=== PATIENT | female | born 1935 | race Caucasian/White ===

== ENCOUNTER 2018-04-20 12:58 | Inpatient (IN) | payer MEDICARE, BC ==
[2018-04-20] MEDS ORDERED: ATROPINE SULFATE 0.1 MG/ML 10ML SYRINGE IV STA (13:30)
[2018-04-20] MEDS ORDERED: SODIUM CHLORIDE 0.9% 1,000 ML IV STA (13:30)
--- NOTE | 2018-04-20 13:44 | ED ---
General Adult HPI - General Chief complaint: Arrhythmia/Palpitations Stated complaint: palpitations, arrythmia Time Seen by Provider: 04/20/18 13:23 Source: patient, RN notes reviewed, old records reviewed Mode of arrival: ambulatory Limitations: no limitations - History of Present Illness Initial comments: This is an 83-year-old female the ER for evaluation. Patient resents today for evaluation regarding weakness, lethargy. Patient sent in by family doctor for evaluation regarding low heart rate. Patient is found to be bradycardic. Patient is relatively poor strain history is obtained from patient's chart and prior ER visits as well as ER record, EMS - Related Data Home Medications Medication Instructions Recorded Confirmed Atenolol [Tenormin] 50 mg PO DAILY 04/20/18 04/20/18 Enalapril [Vasotec] 2.5 mg PO DAILY 04/20/18 04/20/18 Triamterene/Hydrochlorothiazid 1 tab PO DAILY 04/20/18 04/20/18 [Triamterene-Hctz 37.5-25 mg Tb] glipiZIDE [Glucotrol] 10 mg PO DAILY 04/20/18 04/20/18 metFORMIN HCL [Glucophage] 500 mg PO DAILY 04/20/18 04/20/18 Allergies Allergy/AdvReac Type Severity Reaction Status Date / Time No Known Allergies Allergy Verified 04/20/18 13:52 Review of Systems ROS Statement: Those systems with pertinent positive or pertinent negative responses have been documented in the HPI. ROS Other: All systems not noted in ROS Statement are negative. Past Medical History Past Medical History: Diabetes Mellitus, Hypertension History of Any Multi-Drug Resistant Organisms: None Reported Past Surgical History: Appendectomy, Joint Replacement Additional Past Surgical History / Comment(s): lung surg hip replac Past Psychological History: No Psychological Hx Reported Smoking Status: Former smoker Past Alcohol Use History: None Reported Past Drug Use History: None Reported General Exam Limitations: no limitations General appearance: alert, in no apparent distress Head exam: Present: atraumatic, normocephalic, normal inspection Eye exam: Present: normal appearance, PERRL, EOMI. Absent: scleral icterus, conjunctival injection, periorbital swelling ENT exam: Present: normal exam, mucous membranes moist Neck exam: Present: normal inspection. Absent: tenderness, meningismus, lymphadenopathy Respiratory exam: Present: normal lung sounds bilaterally. Absent: respiratory distress, wheezes, rales, rhonchi, stridor Cardiovascular Exam: Present: normal rhythm, bradycardia, normal heart sounds. Absent: systolic murmur, diastolic murmur, rubs, gallop, clicks GI/Abdominal exam: Present: soft, normal bowel sounds. Absent: distended, tenderness, guarding, rebound, rigid Extremities exam: Present: normal inspection, full ROM, normal capillary refill. Absent: tenderness, pedal edema, joint swelling, calf tenderness Back exam: Present: normal inspection Neurological exam: Present: alert, oriented X3, CN II-XII intact Psychiatric exam: Present: normal affect, normal mood Skin exam: Present: warm, dry, intact, normal color. Absent: rash Course Vital Signs 04/20/18 04/20/18 04/20/18 13:02 14:15 14:16 Temperature 97.9 F Pulse Rate 41 L 50 L Pulse Rate [ 38 L Card[place] Doubler ] Respiratory 16 16 Rate Blood Pressure 131/52 145/65 O2 Sat by Pulse 99 97 Oximetry - Reevaluation(s) Reevaluation #1: 04/20/18 16:25 Patient's medical records thoroughly reviewed Reevaluation #2: 04/20/18 16:25 Abdomen or change in both heart rate or symptoms EKG Findings - EKG Comments: EKG Findings:: EKG shows A. fib rate of 40, QRS 124, QTc 4:15 Medical Decision Making - Medical Decision Making 83 female the ER for evaluation of weakness, patient has mild UTI, bradycardia. Patient be admitted for evaluation by cardiology regarding bradycardia and weakness - Lab Data Result diagrams: 04/20/18 13:35 04/20/18 13:35 Lab Results 04/20/18 04/20/18 04/20/18 Range/Units 13:35 13:35 13:35 WBC 8.2 (3.8-10.6) k/uL RBC 4.33 (3.80-5.40) m/uL Hgb 13.3 (11.4-16.0) gm/dL Hct 40.5 (34.0-46.0) % MCV 93.6 (80.0-100.0) fL MCH 30.8 (25.0-35.0) pg MCHC 32.9 (31.0-37.0) g/dL RDW 12.2 (11.5-15.5) % Plt Count 267 (150-450) k/uL Neutrophils % 74 % Lymphocytes % 16 % Monocytes % 5 % Eosinophils % 2 % Basophils % 1 % Neutrophils # 6.1 (1.3-7.7) k/uL Lymphocytes # 1.3 (1.0-4.8) k/uL Monocytes # 0.4 (0-1.0) k/uL Eosinophils # 0.2 (0-0.7) k/uL Basophils # 0.1 (0-0.2) k/uL PT (9.0-12.0) sec INR (<1.2) APTT (22.0-30.0) sec Sodium 141 (137-145) mmol/L Potassium 4.8 (3.5-5.1) mmol/L Chloride 106 (98-107) mmol/L Carbon Dioxide 25 (22-30) mmol/L Anion Gap 10 mmol/L BUN 43 H (7-17) mg/dL Creatinine 1.62 H (0.52-1.04) mg/dL Est GFR (CKD-EPI)AfAm 33 (>60 ml/min/1.73 sqM) Est GFR (CKD-EPI)NonAf 29 (>60 ml/min/1.73 sqM) Glucose 75 (74-99) mg/dL Calcium 9.9 (8.4-10.2) mg/dL Phosphorus 4.7 H (2.5-4.5) mg/dL Magnesium 2.1 (1.6-2.3) mg/dL Total Bilirubin 0.5 (0.2-1.3) mg/dL AST 34 (14-36) U/L ALT 41 (9-52) U/L Alkaline Phosphatase 70 (38-126) U/L Total Creatine Kinase 63 (30-135) U/L CK-MB (CK-2) 0.9 (0.0-2.4) ng/mL CK-MB (CK-2) Rel Index 1.4 Troponin I <0.012 (0.000-0.034) ng/mL Total Protein 7.4 (6.3-8.2) g/dL Albumin 4.3 (3.5-5.0) g/dL TSH 3.750 (0.465-4.680) mIU/L Urine Color Urine Appearance (Clear) Urine pH (5.0-8.0) Ur Specific [place] (1.001-1.035) Urine Protein (Negative) Urine Glucose (UA) (Negative) Urine Ketones (Negative) Urine Blood (Negative) Urine Nitrite (Negative) Urine Bilirubin (Negative) Urine Urobilinogen (<2.0) mg/dL Ur Leukocyte Esterase (Negative) Urine RBC (0-5) /hpf Urine WBC (0-5) /hpf Ur Squamous Epith Cells (0-4) /hpf Urine Bacteria (None) /hpf Hyaline Casts (0-2) /lpf Urine Mucus (None) /hpf 04/20/18 04/20/18 Range/Units 13:35 15:55 WBC (3.8-10.6) k/uL RBC (3.80-5.40) m/uL Hgb (11.4-16.0) gm/dL Hct (34.0-46.0) % MCV (80.0-100.0) fL MCH (25.0-35.0) pg MCHC (31.0-37.0) g/dL RDW (11.5-15.5) % Plt Count (150-450) k/uL Neutrophils % % Lymphocytes % % Monocytes % % Eosinophils % % Basophils % % Neutrophils # (1.3-7.7) k/uL Lymphocytes # (1.0-4.8) k/uL Monocytes # (0-1.0) k/uL Eosinophils # (0-0.7) k/uL Basophils # (0-0.2) k/uL PT 9.9 (9.0-12.0) sec INR 1.0 (<1.2) APTT 22.4 (22.0-30.0) sec Sodium (137-145) mmol/L Potassium (3.5-5.1) mmol/L Chloride (98-107) mmol/L Carbon Dioxide (22-30) mmol/L Anion Gap mmol/L BUN (7-17) mg/dL Creatinine (0.52-1.04) mg/dL Est GFR (CKD-EPI)AfAm (>60 ml/min/1.73 sqM) Est GFR (CKD-EPI)NonAf (>60 ml/min/1.73 sqM) Glucose (74-99) mg/dL Calcium (8.4-10.2) mg/dL Phosphorus (2.5-4.5) mg/dL Magnesium (1.6-2.3) mg/dL Total Bilirubin (0.2-1.3) mg/dL AST (14-36) U/L ALT (9-52) U/L Alkaline Phosphatase (38-126) U/L Total Creatine Kinase (30-135) U/L CK-MB (CK-2) (0.0-2.4) ng/mL CK-MB (CK-2) Rel Index Troponin I (0.000-0.034) ng/mL Total Protein (6.3-8.2) g/dL Albumin (3.5-5.0) g/dL TSH (0.465-4.680) mIU/L Urine Color Yellow Urine Appearance Clear (Clear) Urine pH 6.5 (5.0-8.0) Ur Specific [place] 1.014 (1.001-1.035) Urine Protein Negative (Negative) Urine Glucose (UA) Negative (Negative) Urine Ketones Negative (Negative) Urine Blood Negative (Negative) Urine Nitrite Negative (Negative) Urine Bilirubin Negative (Negative) Urine Urobilinogen <2.0 (<2.0) mg/dL Ur Leukocyte Esterase Large H (Negative) Urine RBC 7 H (0-5) /hpf Urine WBC 13 H (0-5) /hpf Ur Squamous Epith Cells 2 (0-4) /hpf Urine Bacteria Occasional H (None) /hpf Hyaline Casts 1 (0-2) /lpf Urine Mucus Rare H (None) /hpf - Radiology Data Radiology results: report reviewed (Chest x-rays negative for acute disease), image reviewed Disposition Clinical Impression: Bradycardia Disposition: ADMITTED IP TO THIS HOSP Condition: Fair Is patient prescribed a controlled substance at d/c from ED?: No Referrals: Jl Vang MD [Primary Care Provider] - 1-2 days
[2018-04-20 13:54] LABS: Basophils # (A) 0.1 k/uL (0-0.2); Basophils % (A) 1 %; Eosinophils # (A) 0.2 k/uL (0-0.7); Eosinophils % (A) 2 %; HCT 40.5 % (34.0-46.0); HGB 13.3 gm/dL (11.4-16.0); Lymphocytes # (A) 1.3 k/uL (1.0-4.8); Lymphocytes % (A) 16 %; MCH 30.8 pg (25.0-35.0); MCHC 32.9 g/dL (31.0-37.0); MCV 93.6 fL (80.0-100.0); Mean Platelet Volume 7.1; Monocytes # (A) 0.4 k/uL (0-1.0); Monocytes % (A) 5 %; Neutrophils # (A) 6.1 k/uL (1.3-7.7); Neutrophils % (A) 74 %; Platelet Count 267 k/uL (150-450); RBC 4.33 m/uL (3.80-5.40); RDW 12.2 % (11.5-15.5); WBC 8.2 k/uL (3.8-10.6)
[2018-04-20 14:07] LABS: Partial Thromboplastin Time 22.4 sec (22.0-30.0); Prothrombin Time 9.9 sec (9.0-12.0)
[2018-04-20 14:17] LABS: Albumin 4.3 g/dL (3.5-5.0); Calcium 9.9 mg/dL (8.4-10.2); Magnesium 2.1 mg/dL (1.6-2.3); Phosphorus 4.7 mg/dL (2.5-4.5); Potassium 4.8 mmol/L (3.5-5.1); Total Bilirubin 0.5 mg/dL (0.2-1.3); Total Protein 7.4 g/dL (6.3-8.2)
[2018-04-20 14:21] LABS: Creatine Kinase 63 U/L (30-135)
[2018-04-20 14:35] LABS: Creatine Kinase MB 0.9 ng/mL (0.0-2.4); Troponin I <0.012 ng/mL (0.000-0.034)
--- NOTE | 2018-04-20 14:35 | XR ---
EXAMINATION TYPE: XR chest 2V DATE OF EXAM: 04/20/2018 COMPARISON: 12/12/2012 INDICATION: Weakness bradycardia syncope TECHNIQUE: Frontal and lateral views of the chest are obtained. FINDINGS: The heart size is enlarged. The pulmonary vasculature is normal. The lungs are clear. There is blunting of the right costophrenic angle. Some minimal atelectasis not excluded. IMPRESSION: 1. Cardiomegaly. 2. Minimal atelectasis at the right costophrenic angle is not excluded. Lung wiley otherwise appear clear.
[2018-04-20 16:14] LABS: Appearance,Urine Clear (Clear); Bacteria,Urine Occasional /hpf; Bilirubin,Urine Negative (Negative); Blood,Urine Negative (Negative); Color,Urine Yellow; Glucose,Urine (UA) Negative (Negative); Hyaline Casts,Urine 1 /lpf (0-2); Ketones,Urine Negative (Negative); Leukocyte Esterase,Urine Large (Negative); Mucus,Urine Rare /hpf; Nitrite,Urine Negative (Negative); PH, Urine 6.5 (5.0-8.0); Protein,Urine Negative (Negative); RBC,Urine 7 /hpf (0-5); Specific Gravity,Urine 1.014 (1.001-1.035); Squamous Epithelial Cell,Urine 2 /hpf (0-4); Urobilinogen,Urine <2.0 mg/dL (<2.0); WBC,Urine 13 /hpf (0-5)
[2018-04-20] MEDS ORDERED: NITROGLYCERIN SL TABS 0.4 MG TAB SUBLINGUAL PRN (16:22)
[2018-04-20] MEDS ORDERED: HEPARIN SODIUM,PORCINE 5,000 UNIT/ML 1 ML VIAL IV PRN (16:37)
[2018-04-20] MEDS ORDERED: HEPARIN SODIUM,PORCINE 5,000 UNIT/ML 1 ML VIAL IV ONE (16:37)
[2018-04-20] MEDS: SODIUM CHLORIDE 0.9% 1,000 ML IV SCH (16:40)
[2018-04-20] MEDS: HEPARIN SOD,PORK IN 0.45% NACL 25,000 UNIT in 0.45% NACL 1 500ML.BAG IV SCH (18:26)
[2018-04-20 19:41] LABS: Glucose,Whole Blood 66 mg/dL (75-99)
[2018-04-20 19:51] LABS: Creatine Kinase 64 U/L (30-135)
[2018-04-20 20:05] LABS: Troponin I <0.012 ng/mL (0.000-0.034)
--- NOTE | 2018-04-20 20:36 | HP ---
HISTORY AND PHYSICAL Patient was seen in the emergency room. She is waiting for a room; room has not been assigned yet. CHIEF COMPLAINTS: General weakness, palpitation, and also cardiac arrhythmia, not feeling good. This is an 83-year-old white female who started having some palpitations and general weakness and she was not feeling good overall. She also had some shortness of breath. The patient was brought to the emergency room. In the ER, her EKG showed atrial fibrillation with a very slow ventricular rate. The ventricular rate was around 40 per minute. Her CBC showed a WBC count of 8.2, hemoglobin 13.3, platelet count 267,000, sodium 141 and the potassium 4.8, BUN 43, creatinine 1.62, glucose 75, troponin less than 0.012. Patient was admitted to the hospital for further evaluation and treatment. PAST MEDICAL HISTORY: Reveals she has longstanding history of diabetes mellitus and hypertensive cardiovascular disease and her peripheral neuropathy. No history of atrial fibrillation in the past. CURRENT MEDICATIONS: 1. Triamterene/hydrochlorothiazide 1 capsule daily. 2. Atenolol 50 mg p.o. daily. 3. Metformin 500 mg p.o. daily. 4. Glipizide 10 mg p.o. daily. 5. Enalapril 2.5 mg p.o. daily. ALLERGIES: NO KNOWN DRUG ALLERGIES. She does not smoke and she does not drink alcohol. FAMILY HISTORY: Positive for diabetes, heart disease and cancer. REVIEW OF SYSTEMS: Patient denies any headache. Appetite has been poor lately. She has no chest pain. She has palpitations. She has some shortness of breath. She has no abdominal pain. She has no polyuria or dysuria. She has no neurological symptoms. PHYSICAL EXAMINATION: Reveals an 83-year-old white female. She appears weak, but she is alert and oriented. There is no jaundice. There is no generalized lymphadenopathy. There are no petechiae or bruises. Pulse is 41 per minute, irregular. Blood pressure 131/52, temperature 97.9, respirations 16 per minute, pulse ox 99%. Examination of the ENT is negative. Neck is supple. There is no jugular venous distention. There is no goiter. There is no carotid bruit. Heart is in atrial fibrillation with a slow ventricular response. Lungs are clear to auscultation and percussion. ABDOMEN: Soft and nontender. There is no mass palpable. Examination of the lower extremities reveals no pitting edema. Neurologic examination does not reveal any localizing signs. IMPRESSION: 1. New-onset atrial fibrillation with rapid ventricular response. 2. Diabetes mellitus. 3. Hypertensive cardiovascular disease. 4. Hyperlipidemia. PLAN: Patient will be admitted to hospital. Her heart will be monitored with telemetry. We will have a cardiology consultation. She will be placed back on her previous medications and also started on heparin. Prognosis is guarded. The diagnosis, prognosis and therapeutic plans were discussed in detail with the patient today. MMODL / IJN: [id number] /
[2018-04-20 21:09] LABS: Glucose,Whole Blood 107 mg/dL (75-99)
[2018-04-20] MEDS: INSULIN ASPART 100 UNIT/ML 1 ML 10 ML VIAL SQ SCH (21:41)
[2018-04-21 02:30] LABS: Creatine Kinase 64 U/L (30-135)
[2018-04-21 02:41] LABS: Creatine Kinase MB 1.1 ng/mL (0.0-2.4); Troponin I <0.012 ng/mL (0.000-0.034)
[2018-04-21] MEDS: SODIUM CHLORIDE 0.9% 1,000 ML IV SCH ×2 (03:48→13:44)
[2018-04-21 06:10] LABS: Glucose,Whole Blood 102 mg/dL (75-99)
[2018-04-21] MEDS: INSULIN ASPART 100 UNIT/ML 1 ML 10 ML VIAL SQ SCH ×4 (06:11→21:46)
[2018-04-21] MEDS: glipiZIDE 10 MG TAB PO SCH (06:24)
[2018-04-21] MEDS: metFORMIN 500 MG TAB PO SCH (06:25)
[2018-04-21 06:45] LABS: Basophils % (A) 1 %; Eosinophils # (A) 0.2 k/uL (0-0.7); Eosinophils % (A) 3 %; HGB 11.5 gm/dL (11.4-16.0); Lymphocytes # (A) 1.5 k/uL (1.0-4.8); Lymphocytes % (A) 23 %; MCH 31.8 pg (25.0-35.0); MCHC 33.7 g/dL (31.0-37.0); MCV 94.3 fL (80.0-100.0); Mean Platelet Volume 7.1; Monocytes # (A) 0.4 k/uL (0-1.0); Monocytes % (A) 6 %; Neutrophils # (A) 4.3 k/uL (1.3-7.7); Neutrophils % (A) 66 %; Platelet Count 199 k/uL (150-450); RBC 3.61 m/uL (3.80-5.40); RDW 12.3 % (11.5-15.5); WBC 6.6 k/uL (3.8-10.6)
[2018-04-21 07:01] LABS: Cholesterol 138 mg/dL (<200); HDL Cholesterol 33 mg/dL (40-60); LDL Cholesterol,Calculated 74 mg/dL (0-99); Triglycerides 155 mg/dL (<150)
[2018-04-21 07:08] LABS: INR 1.1 (<1.2); Prothrombin Time 10.7 sec (9.0-12.0)
[2018-04-21] MEDS ORDERED: ENOXAPARIN 40 MG/0.4 ML SYRINGE SQ SCH (09:00)
[2018-04-21] MEDS ORDERED: TRIAMTERENE-HCTZ 37.5-25MG 1 EACH TAB PO SCH (09:00)
[2018-04-21] MEDS ORDERED: ASPIRIN 325 MG TAB PO SCH (09:00)
[2018-04-21] MEDS: LISINOPRIL 5 MG TAB PO SCH (10:00)
[2018-04-21 11:42] LABS: Glucose,Whole Blood 65 mg/dL (75-99)
--- NOTE | 2018-04-21 11:47 | ECHOF ---
Referral Reason:afib, bradycardia MEASUREMENTS -------- HEIGHT: 170.2 cm WEIGHT: 84.8 kg BP: 118/54 RVIDd: 2.6 cm (< 3.3) IVSd: 1.2 cm (0.6 - 1.1) LVIDd: 5.2 cm (3.9 - 5.3) LVPWd: 1.4 cm (0.6 - 1.1) IVSs: 1.9 cm LVIDs: 3.1 cm LVPWs: 1.8 cm LA Diam: 3.6 cm (2.7 - 3.8) LAESV Index (A-L): 36.29 ml/m Ao Diam: 2.9 cm (2.0 - 3.7) MV EXCURSION: 15.271 mm (> 18.000) MV EF SLOPE: 162 mm/s (70 - 150) EPSS: 0.2 cm MV E Farzad: 0.86 m/s MV DecT: 155 ms MV A Farzad: 0.38 m/s MV E/A Ratio: 2.28 AV maxP.08 mmHg AV meanP.26 mmHg RAP: 15.00 mmHg RVSP: 43.59 mmHg FINDINGS -------- Atrial fibrillation. This was a technically difficult study with suboptimal parasternal views. The left ventricular size is normal. There is moderate concentric left ventricular hypertrophy. O verall left ventricular systolic function is mild-moderately impaired with, an EF between 40 - 45 %. The right ventricle is normal in size. LA is moderately dilated 34-39 ml/m2 The right atrium is normal in size. There is mild aortic valve sclerosis. There is mild aortic stenosis present. Peak/mean gradient a cross the Aortic Valve is 13.08mmHg / 6.26mmHg. The mitral valve leaflets are mildly thickened. Mild mitral annular calcification present. Modera te mitral regurgitation is present. Mild tricuspid regurgitation present. There is mild pulmonary hypertension. The right ventricular systolic pressure, as measured by Doppler, is 43.59mmHg. Trace/mild (physiologic) pulmonic regurgitation. The aortic root size is normal. The inferior vena cava is dilated with no significant inspiratory collapse which is consistent estima [place] right atrial pressure of >15 mmHg. There is no pericardial effusion. CONCLUSIONS -------- 1. Atrial fibrillation. 2. This was a technically difficult study with suboptimal parasternal views. 3. The left ventricular size is normal. 4. There is moderate concentric left ventricular hypertrophy. 5. Overall left ventricular systolic function is mild-moderately impaired with, an EF between 40 - 45 %. 6. The right ventricle is normal in size. 7. LA is moderately dilated 34-39 ml/m2 8. The right atrium is normal in size. 9. There is mild aortic valve sclerosis. 10. There is mild aortic stenosis present. 11. Peak/mean gradient across the Aortic Valve is 13.08mmHg / 6.26mmHg. 12. The mitral valve leaflets are mildly thickened. 13. Mild mitral annular calcification present. 14. Moderate mitral regurgitation is present. 15. Mild tricuspid regurgitation present. 16. There is mild pulmonary hypertension. 17. The right ventricular systolic pressure, as measured by Doppler, is 43.59mmHg. 18. Trace/mild (physiologic) pulmonic regurgitation. 19. The aortic root size is normal. 20. The inferior vena cava is dilated with no significant inspiratory collapse which is consistent es timated right atrial pressure of >15 mmHg. 21. There is no pericardial effusion. MONONITROTOLUENE OPERATOR: Radha Oneal RDCS
[2018-04-21 11:57] LABS: Glucose,Whole Blood 72 mg/dL (75-99)
[2018-04-21 12:19] LABS: Calcium 8.8 mg/dL (8.4-10.2); Potassium 4.6 mmol/L (3.5-5.1)
[2018-04-21 13:33] LABS: Hemoglobin A1C 5.7 % (4.0-6.0)
[2018-04-21 13:54] VITALS: BMI 29.3
--- NOTE | 2018-04-21 14:19 | PN ---
PROGRESS NOTE DATE OF SERVICE: 04/21/2018 This is an 83-year-old white female, who was brought to the emergency room with complaints of palpitation, not feeling good and dizziness and general weakness and in the emergency room she was found to have atrial fibrillation with slow ventricular response and her heart rate was 140, and she also is known to have diabetes mellitus and hyperlipidemia, hypertensive cardiovascular disease and the patient's blood chemistry all very unremarkable and troponin was within normal limits. Patient was admitted to the hospital for further evaluation and treatment. Patient's heart is being monitored by telemetry and today patient says that she is feeling a little worse than yesterday. Her heart rate remains at 140 and still in atrial fibrillation. The patient was seen by [facility], Dr. Ron Lowry and he is planning to watch her heart rate because she used to be on atenolol and this has been discontinued. If she continues to be with significant bradycardia, Dr. Lowry is planning to place a pacemaker. Otherwise, her vital signs are stable and she denies any chest pain or shortness of breath at rest. Her diabetes is being controlled with NovoLog sliding scale, and she has already been placed back on her previous home medications. Overall prognosis is guarded. The diagnosis, prognosis and therapeutic plans were discussed in detail with the patient today. MMODL / IJN: [id number] /
[2018-04-21] MEDS: HEPARIN SOD,PORK IN 0.45% NACL 25,000 UNIT in 0.45% NACL 1 500ML.BAG IV SCH (14:36)
--- NOTE | 2018-04-21 15:01 | CONS ---
CONSULTATION This is an 83-year-old lady who presented to the emergency room with complaints of feeling weak and lethargic; was sent in by the family doctor, Dr. Jl Vang, after evaluation in the office. Apparently she had a low heart rate, was complaining of feeling fatigued and lack of energy. She takes atenolol 50 mg every morning and she took one at about 10 a.m. yesterday. She also has underlying hypertension and type 2 diabetes mellitus. At the time of my evaluation, she is not a good historian but indicates to me that she was feeling weak and tired, but this morning she feels better. Denies any chest pain or shortness of breath. She is relatively comfortable at the time of my evaluation. Her rhythm strip review suggests that the heart rate was in the 30s and rhythm is atrial fibrillation. I called and spoke to Dr. Vang, who thought that this atrial fibrillation is probably new, and bradycardia is also new for her. She had a sinus rhythm and the last EKG was about 6 years ago. PAST MEDICAL HISTORY: 1. Hypertension. 2. Type 2 diabetes. 3. No evidence of any prior myocardial infarction or CVA. 4. She is status post appendectomy and also orthopedic surgery. ALLERGIES: NONE. MEDICATIONS AT HOME: 1. Atenolol 50 mg every morning, which she took at 10 a.m. yesterday morning. 2. Enalapril 2.5 mg daily. 3. Dyazide 1 tablet daily. 4. Glipizide 10 mg daily. 5. Metformin 500 mg daily. EKG yesterday evening revealed atrial fibrillation at a rate of about 40 beats per minute with isolated PVCs. On examination, blood pressure this morning is 118/70, pulse rate is about 44 per minute, irregular. HEENT: Unremarkable. Fundus was not examined by me. Neck is supple. There is no JVD. I do not hear a carotid bruit. Heart exam reveals S1, S2 with irregular rate and rhythm, short systolic murmur at the base. Second heart sound is good. Lungs are clear. Abdomen is soft, nontender. Lower extremities reveal diminished pulses. No edema. Central nervous system is normal. IMPRESSION: 1. Symptomatic bradycardia in a patient with probably underlying sick sinus syndrome. 2. Atrial fibrillation with slow rate, probably a new rhythm abnormality, although last EKG was 6 years and it was sinus according to primary care physician. 3. Patient probably has underlying sick sinus syndrome which is precipitated and worsened by beta kenton. 4. Hypertension, under good control. 5. Type 2 diabetes mellitus. RECOMMENDATIONS: I am recommending that we check her echocardiogram, wait another 24 hours to see if her heart rate picks up. If it does, she may not require any intervention. If she continues to be bradycardic with symptoms, then she will require a pacemaker. If she is having chronic atrial fibrillation, it would be reasonable to do a single-chamber pacemaker in this elderly lady, but if she has any underlying sinus mechanism, it would be reasonable to do a dual-chamber pacemaker. These issues will be discussed. Patient will be kept n.p.o. and I will make the decision tomorrow. There is no other family member at this time, but I will also hopefully speak with any family members as well and make the decision in the morning. I will look at the echocardiogram that was performed today. Thank you very much for the consult. ANDRES / ALEXANDERN: [id number] /
[2018-04-21 16:28] LABS: Glucose,Whole Blood 91 mg/dL (75-99)
[2018-04-21 20:45] LABS: Glucose,Whole Blood 92 mg/dL (75-99)
[2018-04-22 06:06] LABS: Glucose,Whole Blood 92 mg/dL (75-99)
[2018-04-22] MEDS: INSULIN ASPART 100 UNIT/ML 1 ML 10 ML VIAL SQ SCH ×4 (06:12→20:46)
[2018-04-22 06:20] LABS: Basophils # (A) 0.1 k/uL (0-0.2); Basophils % (A) 1 %; Eosinophils # (A) 0.2 k/uL (0-0.7); Eosinophils % (A) 4 %; HCT 34.2 % (34.0-46.0); Lymphocytes # (A) 1.6 k/uL (1.0-4.8); Lymphocytes % (A) 25 %; MCH 30.6 pg (25.0-35.0); MCHC 32.3 g/dL (31.0-37.0); MCV 94.9 fL (80.0-100.0); Mean Platelet Volume 7.3; Monocytes # (A) 0.4 k/uL (0-1.0); Monocytes % (A) 6 %; Neutrophils # (A) 3.8 k/uL (1.3-7.7); Neutrophils % (A) 62 %; Platelet Count 197 k/uL (150-450); RDW 12.4 % (11.5-15.5); WBC 6.1 k/uL (3.8-10.6)
[2018-04-22 06:24] LABS: INR 1.1 (<1.2); Prothrombin Time 10.6 sec (9.0-12.0)
[2018-04-22 11:37] LABS: Calcium 9.2 mg/dL (8.4-10.2)
[2018-04-22] MEDS: metFORMIN 500 MG TAB PO SCH (12:06)
[2018-04-22] MEDS: glipiZIDE 10 MG TAB PO SCH (12:06)
[2018-04-22] MEDS: ASPIRIN 81 MG PO SCH (12:06)
[2018-04-22] MEDS: amLODIPine 2.5 MG TAB PO SCH (12:07)
[2018-04-22] MEDS: SODIUM CHLORIDE 0.9% 1,000 ML IV SCH ×4 (12:08→20:03)
[2018-04-22 12:14] LABS: Glucose,Whole Blood 110 mg/dL (75-99)
--- NOTE | 2018-04-22 12:38 | PN ---
PROGRESS NOTE Mrs. Whitfield continues to be bradycardic. Heart rate is in the high 30s and mid 40s. EKG revealed a heart rate in the mid 40s today. She is mostly on bedrest. No significant symptoms. I have had a discussion with the patient and daughter at length. Explained to them the need for pacemaker. They both understand the risks, benefits, options and wished to proceed. I will perform procedure at 11 am tomorrow. I will probably use do a temporary pacemaker as well. Given the fact she remains in atrial fibrillation, she may require a single-chamber pacemaker only. Her last EKG apparently was sinus, but this was several years ago. We will do a single-chamber pacemaker tomorrow at 11 am, hold heparin prior to the procedure. Rationale, risks, benefits, options explained. Patient and daughter understand and wish to proceed. Vital signs are stable, otherwise. Heart rate is 42 at the time of my evaluation. Blood pressure is 120, S1-S2 heard normally, short systolic murmur noted. Lungs reveal diminished air entry. Abdomen and lower extremity exam is unchanged. MMODL / IJN: [id number] /
[2018-04-22 16:43] LABS: Glucose,Whole Blood 82 mg/dL (75-99)
[2018-04-22] MEDS: HEPARIN SOD,PORK IN 0.45% NACL 25,000 UNIT in 0.45% NACL 1 500ML.BAG IV SCH (17:18)
[2018-04-22] MEDS: LISINOPRIL 5 MG TAB PO SCH (17:19)
[2018-04-22 20:26] LABS: Glucose,Whole Blood 107 mg/dL (75-99)
--- NOTE | 2018-04-22 22:20 | PN ---
PROGRESS NOTE DATE OF SERVICE: 04/22/2018 This 83-year-old white female was brought to the emergency room with a weakness, dizziness, and palpitation and not feeling good. In the ER, she was found to have atrial fibrillation with extremely slow ventricular rate. Her ventricular rate was around 40 and she is also known to have diabetes mellitus and hypertensive cardiovascular disease. She was admitted to the hospital for further evaluation and treatment. The patient was admitted to telemetry and heart rate was being monitored with telemetry and the patient was seen by Cardiology in consultation. She has been on atenolol and this was discontinued and she was placed back on her other home medications. However, her heart rate remains slow and Dr. Yaron Lowry is planning to put a pacemaker possibly tomorrow and in the meantime, we will continue her current medications and also uncontrolled diabetes with NovoLog sliding scale. Prognosis is guarded. The diagnosis, prognosis and therapeutic plans were discussed in detail with the patient and also with her daughter today. MMSAMANTHA / ALEXANDERN: [id number] /
[2018-04-23] MEDS: SODIUM CHLORIDE 0.9% 1,000 ML IV SCH (05:12)
[2018-04-23] MEDS: glipiZIDE 10 MG TAB PO SCH (05:47)
[2018-04-23] MEDS: INSULIN ASPART 100 UNIT/ML 1 ML 10 ML VIAL SQ SCH ×4 (05:47→21:24)
[2018-04-23] MEDS: metFORMIN 500 MG TAB PO SCH (05:47)
[2018-04-23] MEDS ORDERED: ceFAZolin IN SWFI 2 GM/20 ML SYRINGE IVP ONE (06:00)
[2018-04-23] MEDS ORDERED: ceFAZolin 1,000 MG in SODIUM CHLORIDE 0.9% IRRIGATIO 250 ML IRRIGATION ONE (06:00)
[2018-04-23] MEDS: amLODIPine 2.5 MG TAB PO SCH (06:17)
[2018-04-23] MEDS: ASPIRIN 81 MG PO SCH (06:17)
[2018-04-23] MEDS: LISINOPRIL 5 MG TAB PO SCH (06:17)
[2018-04-23 06:25] LABS: Glucose,Whole Blood 92 mg/dL (75-99)
[2018-04-23 08:00] LABS: Basophils % (A) 1 %; Eosinophils # (A) 0.2 k/uL (0-0.7); Eosinophils % (A) 2 %; HCT 34.1 % (34.0-46.0); Lymphocytes # (A) 1.3 k/uL (1.0-4.8); Lymphocytes % (A) 17 %; MCH 30.6 pg (25.0-35.0); MCHC 32.3 g/dL (31.0-37.0); MCV 94.8 fL (80.0-100.0); Mean Platelet Volume 7.6; Monocytes # (A) 0.4 k/uL (0-1.0); Monocytes % (A) 5 %; Neutrophils # (A) 5.6 k/uL (1.3-7.7); Neutrophils % (A) 74 %; Platelet Count 197 k/uL (150-450); RDW 12.5 % (11.5-15.5); WBC 7.6 k/uL (3.8-10.6)
[2018-04-23 08:02] LABS: INR 1.1 (<1.2); Prothrombin Time 10.6 sec (9.0-12.0)
[2018-04-23] MEDS ORDERED: LIDOCAINE 1% INJ 10MG/ML (20 ML MDV) ONE (11:25)
[2018-04-23] MEDS ORDERED: MIDAZOLAM 2 MG/2 ML VIAL ONE (11:26)
[2018-04-23] MEDS ORDERED: diphenhydrAMINE 50 MG/ML 1 ML VIAL ONE (11:26)
[2018-04-23] MEDS ORDERED: IOPAMIDOL-250 50ML BTL IV ONE (11:29)
[2018-04-23] MEDS ORDERED: IV FLUID CONTINUATION 1,000 ML IV ONE (11:30)
[2018-04-23] MEDS ORDERED: MIDAZOLAM 2 MG/2 ML VIAL IVP ONE (11:35)
[2018-04-23] MEDS ORDERED: LIDOCAINE 1% (PF) 10MG/ML VIAL SQ ONE ×2 (11:38→12:05)
[2018-04-23] MEDS ORDERED: MORPHINE SULFATE 4 MG/ML SYRINGE ONE (12:41)
[2018-04-23] MEDS ORDERED: MORPHINE SULFATE 4 MG/ML SYRINGE IVP ONE (12:44)
[2018-04-23] MEDS ORDERED: ACETAMINOPHEN TAB 325 MG TAB PO PRN (13:02)
--- NOTE | 2018-04-23 14:18 | XR ---
EXAMINATION TYPE: XR chest 1V DATE OF EXAM: 04/23/2018 HISTORY: new pacer, chk for lead placement and complication. REFERENCE: Previous study dated 04/20/2018. FINDINGS: There has been interval placement of a unipolar pacemaker via a left subclavian approach. L ead overlies the right ventricle. The heart is mildly enlarged. There is vascular congestion and pulmonary edema. There are small, bila teral effusions. IMPRESSION: 1. SATISFACTORY PACEMAKER PLACEMENT WITHOUT COMPLICATION. 2. FINDINGS SUGGESTIVE OF WORSENING HEART FAILURE.
--- NOTE | 2018-04-23 16:40 | PN ---
PROGRESS NOTE DATE OF SERVICE: 04/23/2018 This is a 83-year-old white female who was brought to the emergency room with general weakness, dizziness and palpitations and the patient was found to have atrial fibrillation with very slow ventricular rate. The patient also has diabetes mellitus and hypertensive cardiovascular disease. The patient was admitted to the [facility] and her heart was monitored with telemetry. The patient was seen by [facility] and Dr. SEVEN Lowry is following the patient. She was on atenolol prior to the admission and because of bradycardia, atenolol was discontinued, but however, her heart rate is still extremely slow around [address] Yaron Lowry recommended putting in a pacemaker and currently patient is going to have the pacemaker in the morning. Otherwise, the patient is clinically stable. There is no acute cardiorespiratory problems. MMODL / IJN: [id number] /
[2018-04-23 17:17] LABS: Glucose,Whole Blood 104 mg/dL (75-99)
--- NOTE | 2018-04-23 17:31 | OP ---
OPERATIVE REPORT DATE OF SERVICE: 04/23/2018. PROCEDURE: 1. Transvenous temporary pacemaker from the right femoral venous approach. 2. Permanent single-chamber pacemaker from left infraclavicular approach. PERFORMED BY: Dr. Aracelis Lowry. SEDATION: Moderate conscious sedation time was 90 minutes. CLINICAL INFORMATION: Ms. Xiao Whitfield is an 83-year-old elderly lady with a history of type 2 diabetes, hypertension, and hyperlipidemia who came into the hospital with dizziness, lightheadedness, fatigue, and near syncopal spells. She was found to be in the atrial fib with a slow rate in the mid 30s. She was on atenolol 50 mg daily. Her atenolol was held and we waited almost 72 hours, but the heart rate continued to be in the mid to high 30s and with symptoms when she ambulated; therefore she was advised a permanent pacemaker. PROCEDURE NOTE: Under local anesthesia and strict aseptic precautions, a 6-Eritrean introducer was placed in the right femoral vein. Under fluoroscopic guidance, a balloon tipped pacemaker was positioned in the right ventricular apex. The thresholds were obtained. The threshold was 0.5 mV. The pacemaker was sutured, the sheath was sutured, I then unscrubbed and began the permanent pacemaker procedure. Under local anesthesia and strict aseptic precautions, following a venogram, I gained access into the axillary vein from the right infraclavicular approach. Venous access was achieved. Micropuncture needle technique was used. Wire was kept in the right atrium. I then made a 2-1/2 inch incision parallel and medial to the right deltopectoral groove. Blunt dissection with cautery was carried down to the level of the fascia and muscle. This pocket was made very carefully. The pocket was then drenched with antibiotic solution. A 6-Eritrean introducer was placed under fluoroscopic guidance and a single-chamber ventricular lead was positioned after multiple attempts in the right ventricular apex, with good sensitivities and thresholds. The lead was then secured to the underlying muscle with an 0 silk suture. I also performed diaphragmatic pacing and checked the lead position both in LATVIAN and BRITO projection. After making sure the numbers were good, the pulse generator was taken and the lead was connected to the pulse generator. The pulse generator was positioned in the pocket. The pocket was again irrigated with antibiotic solution. The pocket was closed in 2 layers with a 3-0 and 4-0 Vicryl. Excellent hemostasis was secured. Patient tolerated the procedure well. ANESTHESIA: Moderate conscious sedation time was 90 minutes. 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. Model Assurity MRI-1272, serial #[id number]. 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, model Tendril STS 2088TC-58 serial #[id number]. The ventricular threshold was 0.5 V at 0.5 milliseconds. R-waves were about 6.0 mV. Impedance was 660 ohms. The pacemaker was set in a VVIR mode at a low rate of 50 and high rate of 110. The patient tolerated the procedure well without complications. The details were discussed with the patient and daughter and she was sent to the room in a stable condition. ANDRES / DANIEL: [id number] /
--- NOTE | 2018-04-23 17:45 | PN ---
PROGRESS NOTE Mrs. Whitfield was admitted with near-syncope, fatigue, lack of energy, remains in atrial fibrillation, slow ventricular rate with ambulation. She is symptomatic with dizziness. Blood pressure is fairly well controlled. Hemodynamically stable. She is going for a permanent pacer today. Rationale, risks, benefits, options were explained. Patient and daughter understand all details and wished to proceed with the procedure. MMODL / IJN: [id number] /
[2018-04-23] MEDS: ceFAZolin IN SWFI 2 GM/20 ML SYRINGE IVP SCH (18:27)
[2018-04-23] MEDS ORDERED: traMADol 50 MG TAB PO PRN (20:37)
[2018-04-23] MEDS ORDERED: ONDANSETRON 4 MG TAB PO PRN (20:41)
[2018-04-23] MEDS ORDERED: PROMETHAZINE HCL 6.25 MG/5 ML CUP PO PRN (20:41)
[2018-04-23 20:43] LABS: Glucose,Whole Blood 189 mg/dL (75-99)
--- NOTE | 2018-04-23 21:19 | XR ---
EXAMINATION TYPE: XR chest 1V portable DATE OF EXAM: 04/23/2018 CLINICAL HISTORY: Hemoptysis progress study. TECHNIQUE: Single AP portable upright view of the chest is obtained. COMPARISON: Chest x-ray from earlier today and older studies FINDINGS: Osseous structures are demineralized. There is old fracture deformity right proximal humer us. There is persisting cardiomegaly with single lead pacemaker and atherosclerotic thoracic aorta. R eticular interstitial changes are redemonstrated bilaterally. Persistent stable small bilateral pleur al effusions are felt present. No sizable pneumothorax. IMPRESSION: Overall stable findings, persistent cardiomegaly with moderate interstitial edema and c entral vascular congestion new from older studies not significantly changed from chest x-ray earlier today
[2018-04-23] MEDS ORDERED: FUROSEMIDE 10 MG/ML 4 ML VIAL IV STA (21:46)
[2018-04-24 05:55] LABS: Glucose,Whole Blood 131 mg/dL (75-99)
[2018-04-24] MEDS: INSULIN ASPART 100 UNIT/ML 1 ML 10 ML VIAL SQ SCH ×4 (06:01→21:41)
[2018-04-24] MEDS: metFORMIN 500 MG TAB PO SCH (06:38)
[2018-04-24] MEDS: ceFAZolin IN SWFI 2 GM/20 ML SYRINGE IVP SCH ×3 (06:38→12:26)
[2018-04-24] MEDS: glipiZIDE 10 MG TAB PO SCH (06:38)
[2018-04-24 07:27] LABS: Basophils % (A) 0 %; Eosinophils # (A) 0.1 k/uL (0-0.7); Eosinophils % (A) 1 %; HCT 35.2 % (34.0-46.0); HGB 11.6 gm/dL (11.4-16.0); Lymphocytes # (A) 0.6 k/uL (1.0-4.8); Lymphocytes % (A) 7 %; MCH 31.6 pg (25.0-35.0); MCHC 32.8 g/dL (31.0-37.0); MCV 96.2 fL (80.0-100.0); Mean Platelet Volume 6.8; Monocytes # (A) 0.4 k/uL (0-1.0); Monocytes % (A) 5 %; Neutrophils # (A) 7.4 k/uL (1.3-7.7); Neutrophils % (A) 87 %; Platelet Count 201 k/uL (150-450); RBC 3.66 m/uL (3.80-5.40); RDW 12.8 % (11.5-15.5); WBC 8.5 k/uL (3.8-10.6)
[2018-04-24 07:29] LABS: INR 1.1 (<1.2); Prothrombin Time 11.1 sec (9.0-12.0)
--- NOTE | 2018-04-24 07:34 | XR ---
EXAMINATION TYPE: XR chest 2V DATE OF EXAM: 04/24/2018 COMPARISON: 04/23/2018 HISTORY: Shortness of breath TECHNIQUE: Frontal and lateral views of the chest are obtained. FINDINGS: Single lead pacer is in place with distal tip overlying the right ventricle. Scattered senescent parenchymal changes noted. Hyperinflation compatible with COPD. Basilar pleural-parenchymal opacities persist with bilateral pleural effusions. Heart size is stable. Mediastinal structures are stable and grossly unremarkable. No evidence for hilar prominence. Degenerative changes dorsal spine. IMPRESSION: 1. Basilar pleural-parenchymal opacities persist with bilateral pleural effusions.
[2018-04-24] MEDS: ASPIRIN 81 MG PO SCH (09:01)
[2018-04-24] MEDS: FUROSEMIDE 20 MG TAB PO SCH (09:01)
[2018-04-24] MEDS: LISINOPRIL 10 MG TAB PO SCH (09:01)
[2018-04-24 09:06] LABS: Calcium 9.1 mg/dL (8.4-10.2); Potassium 4.5 mmol/L (3.5-5.1)
[2018-04-24 12:04] LABS: Glucose,Whole Blood 48 mg/dL (75-99)
[2018-04-24 12:37] LABS: Glucose,Whole Blood 74 mg/dL (75-99)
[2018-04-24] MEDS: APIXABAN 2.5 MG TABLET PO SCH ×2 (15:12→20:46)
--- NOTE | 2018-04-24 15:44 | PN ---
PROGRESS NOTE Mrs. Whitfield had a pacemaker performed yesterday. A single-chamber was placed because patient was in atrial fib for 3 days at a slow rate in 30s. Today she is in a sinus rhythm. However, pacemaker is at a backup rate of 50 beats per minute. She is on her own rhythm at this time. She went into heart failure yesterday. Her ejection fraction in the 40-45 percent range. We gave her some diuretic. She feels better. She feels better and stronger. Pacemaker site is clean and dry. Chest x-ray reveals some small pleural effusions bilaterally. Plan is to place her on Eliquis 2.5 mg daily. Discontinue heparin and aspirin. She will need to be anticoagulated given her atrial fibrillation. Pacemaker is at a backup rate. If she does better, we will increase activity and possibly discharge her tomorrow. Physical exam revealed the pacemaker site is clean and dry. S1, S2 heard normally. Short systolic murmur is audible along left sternal border. Lungs revealed improved air entry, both bases reveal diminished breath sounds. Abdomen and lower extremity exam is unchanged Plan is to switch her from heparin to Eliquis 2.5 mg b.i.d., discontinue aspirin, increase activity and hopefully plan for discharge tomorrow. MMODL / IJN: [id number] /
[2018-04-24 17:14] LABS: Glucose,Whole Blood 80 mg/dL (75-99)
--- NOTE | 2018-04-24 17:59 | PN ---
PROGRESS NOTE DATE OF SERVICE: 04/24/2018 This 83-year-old white female who was brought to the emergency room visit because of dizziness and general weakness and palpitations and he was found to have atrial fibrillation with very slow ventricular response and she has had no diagnosis of atrial fibrillation in the past and patient was admitted to the hospital for further evaluation and treatment. The patient's heart was monitored with telemetry and the patient was seen by [facility] in consultation. Dr. Yaron Lowry saw the patient and the patient will had been on atenolol prior to admission and this was discontinued in spite of that. Heart rate remained extremely low around [address] SEVEN Lowry recommended pacemaker and currently a pacemaker was implanted yesterday 04/23/2018. Today, patient seems to be doing okay, but he is still not able to walk without help and cannot even get up without help and he also has a cough with blood stained sputum and the patient has been on heparin and that could be the reason why she is getting blood in the sputum. However, the patient lives alone and the patient's daughter requested that the patient be evaluated for inpatient rehabilitation and Dr. Lowe is going to be consulted and also Optical Fabrication Technician also will make arrangements for this inpatient rehab in [facility] under Dr. Lowe or in the senior care facility. Prognosis is guarded. The diagnosis, prognosis and therapeutic plans were discussed in detail with the patient and also with her daughter. ANDRES / DANIEL: [id number] /
[2018-04-24 21:23] LABS: Glucose,Whole Blood 129 mg/dL (75-99)
[2018-04-25 06:10] LABS: Glucose,Whole Blood 112 mg/dL (75-99)
--- NOTE | 2018-04-25 06:12 | P.CONS ---
History of Present Illness - Chief Complaint Medical debility - History of Present Illness I had the opportunity to see patient for inpatient rehab consultation with regard to medical debility. She was admitted to [facility] April 20 with weakness, lethargy, bradycardia. EKGs followed as were chest x-rays which demonstrates bibasilar opacities and effusions. OT reports supervision for upper dressing and minimal assistance for lower dressing, bathing, toileting, functional mobility. PT prescribed. Previous functional history as elicited patient: 83-year-old right-handed white female who is and lives in a first-floor apartment alone. Retired. Describes independent with own cooking, laundry, driving, standing shower and gait with standard cane. Doesn't smoke or drink. PMDs Dr. Vang. Review of Systems Review of systems: ENT: Denies sneezes or discharge. Eyes: Denies discharge or photophobia. Cardiac: Denies chest pain or palpitation. Pulmonary: Denies cough or shortness of breath. Breast: Denies discharge or lumps. Gastrointestinal: Denies nausea, emesis, constipation, diarrhea. Genitourinary: Denies discharge or frequency. Musculoskeletal: Denies muscle or bone aches. Neurologic: Generalized weakness. Endocrine: Denies shakes or sweats. Oncology: Denies cancers. Dermatologic: Denies rash, itching, pruritus. ALLERGY/immunology: Denies sneezes, rashes. Past Medical History Past Medical History: Diabetes Mellitus, Hypertension History of Any Multi-Drug Resistant Organisms: None Reported Past Surgical History: Appendectomy, Joint Replacement Additional Past Surgical History / Comment(s): lung surg as a child. hip replac Past Psychological History: No Psychological Hx Reported Smoking Status: Former smoker Past Alcohol Use History: None Reported Additional Past Alcohol Use History / Comment(s): quit smoking in the 60's Past Drug Use History: None Reported - Past Family History Mother Family Medical History: No Reported History Father History Unknown: Yes Brother(s) Additional Family Medical History / Comment(s): "had a bad heart, young" Medications and Allergies Home Medications Medication Instructions Recorded Confirmed Type Atenolol [Tenormin] 50 mg PO DAILY 04/20/18 04/20/18 History Enalapril [Vasotec] 2.5 mg PO DAILY 04/20/18 04/20/18 History Triamterene/Hydrochlorothiazid 1 tab PO DAILY 04/20/18 04/20/18 History [Triamterene-Hctz 37.5-25 mg Tb] glipiZIDE [Glucotrol] 10 mg PO DAILY 04/20/18 04/20/18 History metFORMIN HCL [Glucophage] 500 mg PO DAILY 04/20/18 04/20/18 History Allergies Allergy/AdvReac Type Severity Reaction Status Date / Time No Known Allergies Allergy Verified 04/20/18 13:52 Physical Exam Vitals: Vital Signs Temp Pulse Resp BP Pulse Ox 04/25/18 04:00 97.0 F L 75 18 128/61 96 04/25/18 00:00 97.4 F L 63 18 137/64 96 04/24/18 20:00 97.6 F 63 18 159/67 96 04/24/18 15:39 97.3 F L 76 18 134/53 97 04/24/18 12:00 66 18 123/57 96 04/24/18 07:45 98.2 F 65 18 126/60 94 L Intake and Output 04/24/18 04/24/18 04/25/18 14:59 22:59 06:59 Intake Total 420 Balance 420 Intake: Intake, IV Titration 0 Amount Sodium Chloride 0.9% 1, 0 000 ml @ 100 mls/hr IV . [facility] Rx#:[id number] Oral 420 Other: Voiding Method Toilet Toilet # Voids 1 Weight 88.3 kg Skin: Good color, texture, turgor. General: Medium build and comfortable appearance. Head: Normocephalic, atraumatic. Eyes: Symmetric. Pupils equal round. Ears: Symmetric. Hearing within normal limits. Mouth: Clear. Neck: Supple. Carotid without bruit. Cardiac: Regular rate and rhythm. Lungs: Clear anteriorly and posteriorly. Abdomen: Soft active nontender. Overweight. Extremities: Normal tone. Neurological: Mental status: Alert, cooperative, pleasant. Cranial nerves: Symmetric facial tone and trapezius. Motor: Normal strength and isolation all 4 limbs. Sensation: Intact throughout. DTRs: Symmetric and equal throughout. Mobility: Requires assistance for bed mobility. Results CBC & Chem 7: 04/24/18 06:50 04/24/18 06:50 Labs: Abnormal Lab Results - Last 24 Hours (Table) 04/24/18 04/24/18 04/24/18 Range/Units 06:50 06:50 11:53 RBC 3.66 L (3.80-5.40) m/uL Lymphocytes # 0.6 L (1.0-4.8) k/uL Chloride 109 H (98-107) mmol/L BUN 25 H (7-17) mg/dL Creatinine 1.33 H (0.52-1.04) mg/dL Glucose 121 H (74-99) mg/dL POC Glucose (mg/dL) 48 L (75-99) mg/dL 04/24/18 04/24/18 Range/Units 12:16 21:03 RBC (3.80-5.40) m/uL Lymphocytes # (1.0-4.8) k/uL Chloride (98-107) mmol/L BUN (7-17) mg/dL Creatinine (0.52-1.04) mg/dL Glucose (74-99) mg/dL POC Glucose (mg/dL) 74 L 129 H (75-99) mg/dL Assessment and Plan (1) Bradycardia Current Visit: Yes Status: Acute Code(s): R00.1 - BRADYCARDIA, UNSPECIFIED SNOMED Code(s): 86099739 Plan: Impression: 1. Medical debility. 2. Bradycardia. 3. Hypertension. 4. Diabetes. Comments and plan: At this time OT ongoing in PT prescribed. Follow therapies with yourself for possible need and benefit of inpatient rehab. Note patient lives alone.
[2018-04-25] MEDS: INSULIN ASPART 100 UNIT/ML 1 ML 10 ML VIAL SQ SCH ×4 (06:32→20:52)
[2018-04-25] MEDS: metFORMIN 500 MG TAB PO SCH (06:56)
[2018-04-25] MEDS: glipiZIDE 10 MG TAB PO SCH (06:56)
[2018-04-25 07:47] LABS: Basophils % (A) 1 %; Eosinophils # (A) 0.2 k/uL (0-0.7); Eosinophils % (A) 4 %; HCT 32.5 % (34.0-46.0); HGB 10.6 gm/dL (11.4-16.0); Lymphocytes # (A) 0.8 k/uL (1.0-4.8); Lymphocytes % (A) 14 %; MCH 31.4 pg (25.0-35.0); MCHC 32.7 g/dL (31.0-37.0); MCV 96.3 fL (80.0-100.0); Mean Platelet Volume 7.4; Monocytes # (A) 0.4 k/uL (0-1.0); Monocytes % (A) 7 %; Neutrophils # (A) 4.1 k/uL (1.3-7.7); Neutrophils % (A) 73 %; Platelet Count 172 k/uL (150-450); RBC 3.37 m/uL (3.80-5.40); RDW 12.9 % (11.5-15.5); WBC 5.5 k/uL (3.8-10.6)
[2018-04-25] MEDS: FUROSEMIDE 20 MG TAB PO SCH (07:49)
[2018-04-25 07:50] LABS: INR 1.1 (<1.2); Prothrombin Time 10.9 sec (9.0-12.0)
[2018-04-25] MEDS: APIXABAN 2.5 MG TABLET PO SCH ×2 (07:50→20:50)
[2018-04-25] MEDS: LISINOPRIL 10 MG TAB PO SCH (07:50)
[2018-04-25 11:49] LABS: Glucose,Whole Blood 49 mg/dL (75-99)
[2018-04-25 12:35] LABS: Glucose,Whole Blood 71 mg/dL (75-99)
--- NOTE | 2018-04-25 15:36 | PN ---
PROGRESS NOTE DATE OF SERVICE: 04/25/2018 This is an 83-year-old white female who was admitted with general weakness, palpitation, and dizziness and patient was found to have 2:1 to have atrial fibrillation with very slow ventricular response and she is also known to have diabetes, hypertensive cardiovascular disease and patient was admitted to the hospital for further evaluation and treatment. Patient's heart was monitored with telemetry and she was placed back on her previous home medications. She was seen by Dr. Ron Lowry in consultation and patient has been on atenolol prior to admission and this was discontinued and the patient's heart was closely monitored and the fabricator industrial furnace, Dr. Ron Lowry was following the patient and her diabetes was controlled with placing her on her previous home medications and also normal sliding scale. Patient was found to be extremely weak and has difficulty in getting up and also in ambulating. Dr. Ron Arango recommended putting in a pacemaker and she had a pacemaker implanted and the patient reports cardiac-baez became stable. However, patient lives alone and she has difficulty in ambulating and also even to get up from she needed help and also was given physical therapy and Dr. Lowe was consulted for possible inpatient rehab when discharged. The patient was seen by Dr. Lowe yesterday and she is waiting for the arrangements. As soon as the bed is available in the [facility] rehab unit she will be transferred under Dr. Lowe's service. MMALEAHL / DANIEL: [id number] /
[2018-04-25 16:14] VITALS: RESP 18
[2018-04-25 16:30] LABS: Glucose,Whole Blood 93 mg/dL (75-99)
--- NOTE | 2018-04-25 16:57 | PN ---
PROGRESS NOTE Mrs. Whitfield is in sinus bradycardia today. She is doing well. Heart rate is in the high 50s and low 60s. She is doing well, feels stronger. She is going to go to inpatient rehab at [facility]. Vitals are stable. Pacemaker site is clean and dry. S1, S2 heard normally. Short systolic murmur noted. Lungs are clear. Abdomen and lower extremity exam is unchanged. MMODL / IJN: [id number] /
[2018-04-25 20:48] LABS: Glucose,Whole Blood 106 mg/dL (75-99)
--- NOTE | 2018-04-25 21:24 | DS ---
DISCHARGE SUMMARY DATE OF ADMISSION: 04/20/2018. DATE OF DISCHARGE: 04/26/2018. DISCHARGE DIAGNOSES: 1. Atrial fibrillation with extremely slow ventricular rate. 2. Underlying sick sinus syndrome. 3. Type 2 diabetes mellitus. 4. Hypertensive cardiovascular disease. 5. General weakness and inability to ambulate without help. HISTORY OF PRESENT ILLNESS: This is an 83-year-old white female who started having some palpitations and general weakness and she was not feeling good overall. She also had some shortness of breath on exertion and the patient was brought to the emergency room. In the ER, her EKG showed atrial fibrillation with a very slow ventricular rate and ventricular rate was around 40. Her CBC showed a WBC count of 8.2, hemoglobin 13.3, platelet count 267,000. Sodium 141, potassium 4.8, BUN 43, creatinine 1.62, glucose 675. Troponin was less than 0.012. The patient was admitted to the hospital for further evaluation and treatment. For details of the physical examination at the time of admission, please refer to the history and physical. HOSPITAL COURSE: The patient was admitted to the hospital and her heart was monitored with telemetry and cardiology consultation was obtained and Dr. Ron Lowry saw the patient. The patient was placed back on her previous home medications. She had been on atenolol because of a slow heart rate. This was discontinued. Dr. Ron Lowry evaluated her problem and in spite of discontinuing the atenolol, the heart rate remained extremely low and Dr. Ron Lowry recommended placing a pacemaker. Accordingly, the pacemaker was implanted and the patient's heart rate came up to within normal range and the patient had some symptomatic improvement and she had multiple symptoms and she was feeling extremely weak and was difficult to ambulate. As she lives alone, the family requested that she be placed in an inpatient rehab unit. The patient was given some physical therapy in the hospital and Dr. Lowe was consulted and apparently he recommended inpatient rehab and patient was started on some physical therapy in the hospital. Cardiac baez, the patient's condition being unstable and the patient is going to be discharged on 04/26/2018 and she will be transferred to the [facility] rehab unit under Dr. Lowe's care. She will continue the medications she is on in the hospital: 1. Tylenol 650 mg p.o. q.6 hours p.r.n. pain. 2. Eliquis 2.5 mg p.o. b.i.d. 3. Furosemide 20 mg p.o. daily. 4. Glipizide 10 mg p.o. daily a.c. breakfast. 5. We will continue NovoLog sliding scale. 6. Lisinopril 10 mg p.o. daily. 7. Metformin 500 mg p.o. a.c. breakfast. 8. Nitrostat 0.4 sublingual p.r.n. chest pain. 9. Zofran 4 mg p.o. q.6 hours p.r.n. for nausea. 10.Phenergan cough syrup 12.5 mg every 6 hours p.r.n. for cough. 11.We will discontinue the IV. 12.Also will discontinue the tramadol. 13.From her home medications, Atenolol and enalapril will be discontinued. She will be followed by me for her medical problems while she is in the rehab unit. ANDRES / DANIEL: [id number] /
[2018-04-26 05:56] VITALS: TEMP 97
[2018-04-26 06:03] LABS: Glucose,Whole Blood 99 mg/dL (75-99)
[2018-04-26 06:10] LABS: INR 1.1 (<1.2); Prothrombin Time 10.7 sec (9.0-12.0)
[2018-04-26] MEDS: INSULIN ASPART 100 UNIT/ML 1 ML 10 ML VIAL SQ SCH ×2 (07:01→13:47)
[2018-04-26 07:09] LABS: Basophils % (A) 1 %; Eosinophils # (A) 0.2 k/uL (0-0.7); Eosinophils % (A) 4 %; HCT 34.5 % (34.0-46.0); HGB 11.1 gm/dL (11.4-16.0); Lymphocytes # (A) 1.1 k/uL (1.0-4.8); Lymphocytes % (A) 20 %; MCH 31.4 pg (25.0-35.0); MCHC 32.1 g/dL (31.0-37.0); MCV 97.6 fL (80.0-100.0); Mean Platelet Volume 6.9; Monocytes # (A) 0.4 k/uL (0-1.0); Monocytes % (A) 7 %; Neutrophils # (A) 3.8 k/uL (1.3-7.7); Neutrophils % (A) 67 %; Platelet Count 209 k/uL (150-450); RBC 3.53 m/uL (3.80-5.40); WBC 5.7 k/uL (3.8-10.6)
[2018-04-26] MEDS: LISINOPRIL 10 MG TAB PO SCH (08:24)
[2018-04-26] MEDS: FUROSEMIDE 20 MG TAB PO SCH (08:24)
[2018-04-26] MEDS: APIXABAN 2.5 MG TABLET PO SCH (08:24)
[2018-04-26 09:12] VITALS: BP 129/59; PULSE 68
[2018-04-26 11:54] LABS: Glucose,Whole Blood 91 mg/dL (75-99)
[2018-04-26] MEDS: metFORMIN 500 MG TAB PO SCH (13:48)
[2018-04-26] MEDS: glipiZIDE 10 MG TAB PO SCH (13:48)
--- NOTE | 2018-04-26 14:15 | CDI ---
Last Revision, July 2017 Documentation Clarification Form Date: 04/26/2018 2:02:48 PM From: Xochitl Darnell RN, CCDS Admit Date: 04/20/2018 4:22:00 PM Patient Name: Xiao Whitfield Visit Number: [id number] ATTENTION: The Clinical Documentation Specialists (CDI) and [facility] Coding Staff appreciate your assistance in clarifying documentation. Please respond to the clarification below the line at the bottom and electronically sign. The CDI & [facility] Coding staff will review the response and follow-up if needed. Please note: Queries are made part of the Legal Health Record. If you have any questions, please contact the author of this message via ITS. Jl Benitez MD Atrial fibrillation is documented in the Progress Notes, consults and H&P and requires further specificity. History/Risk Factors: DM, HTN CVD, peripheral Neuropathy, no ho hx of atrial fib in the past Clinical Indicators: 04/25 Cardiology Progress Note: "83-year-old white female who was admitted with general weakness, palpitation, and dizziness and patient was found to have 2:1 to have atrial fibrillation with very slow ventricular response." EKG/telemetry: Atrial Fib Treatment: Single chamber pacemaker insertion Consults: cardiology Maxide 25 mg, 1 tab po qd In your professional opinion, can you please clarify the type of atrial fibrillation, if known? Chronic/Permanent Paroxysmal Persistent Other, please specify Unable to determine Please continue to document in your progress notes and discharge summary in order to capture severity of illness and risk of mortality. Include clinical findings that support your diagnosis. MTDD
--- NOTE | 2018-04-26 14:18 | CDI ---
Last Revision, July 2017 Documentation Clarification Form Date: 04/26/2018 1:50:00 PM From: Xochitl Darnell RN, CCDS Admit Date: 04/20/2018 4:22:00 PM Patient Name: Xiao Whitfield Visit Number: [id number] ATTENTION: The Clinical Documentation Specialists (CDI) and [facility] Coding Staff appreciate your assistance in clarifying documentation. Please respond to the clarification below the line at the bottom and electronically sign. The CDI & [facility] Coding staff will review the response and follow-up if needed. Please note: Queries are made part of the Legal Health Record. If you have any questions, please contact the author of this message via ITS. Jl Benitez MD History/Risk Factors: Generalized weakness, palpitations, CVD, peripheral neuropathy, NO HX of A-fib in the past Clinical Indicators: VS/Pulse OX: Temp 97.9, hr 41, RR 16, B/P 131/52, spo2 99% ra BNP: not done Echocardiogram Results: EF 40-45% 04/24 Chest X Ray: "Basilar pleural-parenchyma opacities persist with bilateral pleural effusions." 04/23 CXR: "FINDINGS SUGGESTIVE OF WORSENING HEART FAILURE." 04/24 Cardiology Progress Note:"She went into heart failure yesterday." Treatment: Lasix 40 mg IVP x1 followed by 20 mg PO QD In your professional opinion, can you please clarify the acuity and type of CHF if known? Systolic Heart Failure: Acute Chronic Acute on Chronic Unable to Determine Other, please specify Please continue to document in your progress notes and discharge summary in order to capture severity of illness and risk of mortality. Include clinical findings that support your diagnosis. P MTDD
--- NOTE | 2018-04-26 19:55 | CONS ---
CONSULTATION Mrs. Whitfield is in sinus rhythm today. Doing well. Heart rate is 60. She is going to rehab. Her pacemaker site is clean and dry. Vital signs stable. S1-S2 heard normally. Short systolic murmur noted. Lungs are clear. Abdomen and lower exam unchanged. MMODL / IJN: [id number] /
--- NOTE | 2018-05-07 16:54 | DS ---
DISCHARGE SUMMARY ADDENDUM: DATE OF ADMISSION: 04/20/2018. DATE OF DISCHARGE: 04/26/2018. DISCHARGE DIAGNOSES: 1. Atrial fibrillation with extremely slow ventricular rate. 2. Underlying sick sinus syndrome. 3. Acute systolic congestive heart failure. 4. Type 2 diabetes mellitus. 5. Hypertensive cardiovascular disease. 6. General weakness and inability to ambulate without help. MMODL / IJN: [id number] /
--- NOTE | 2018-05-07 16:57 | DS ---
DISCHARGE SUMMARY ADDENDUM: DATE OF ADMISSION: 04/20/2018. DATE OF DISCHARGE: 04/26/2018 This patient was brought to the emergency room with complaints of general weakness, palpitation, dizziness, and in the emergency room, she was found to have atrial fibrillation with a extremely slow ventricular response. The patient had no past history of atrial fibrillation. However, the patient was seen by hospital librarian, Dr. Ron Lowry and the patient also thought to have sick sinus syndrome and a permanent pacemaker was inserted and patient converted back to sinus rhythm and apparently the patient appears to have paroxysmal atrial fibrillation. DISCHARGE DIAGNOSES: 1. Paroxysmal atrial fibrillation with extremely slow ventricular rate. 2. Underlying sick sinus syndrome. 3. Acute systolic congestive heart failure. 4. Type 2 diabetes mellitus. 5. Hypertensive cardiovascular disease. 6. Generalized weakness and inability to ambulate without help. MMODL / IJN: [id number] /
== END 2018-04-26 15:55 | disposition hospice, home (50) | DRG 242 ==
LOC: EC 12:58 → 6SEL 16:22
PROVIDERS: ADMIT Internal Medicine; ATTEND Internal Medicine
PROC: 02HK3JZ Insertion of Pacemaker Lead into Right Ventricle, Percutaneous Approach (ICD-10-PCS; principal; 2018-04-23 11:02)
PROC: 0JH604Z Insertion of Pacemaker, Single Chamber into Chest Subcutaneous Tissue and Fascia, Open Approach (ICD-10-PCS; principal; 2018-04-23 11:02)
DX: I48.0 Paroxysmal atrial fibrillation (principal); I50.21 Acute systolic (congestive) heart failure; N39.0 Urinary tract infection, site not specified; E11.42 Type 2 diabetes mellitus with diabetic polyneuropathy; E11.65 Type 2 diabetes mellitus with hyperglycemia; E78.5 Hyperlipidemia, unspecified; I11.0 Hypertensive heart disease with heart failure; I49.5 Sick sinus syndrome; Z79.01 Long term (current) use of anticoagulants; Z79.4 Long term (current) use of insulin; Z79.899 Other long term (current) drug therapy; Z83.3 Family history of diabetes mellitus; Z87.891 Personal history of nicotine dependence; Z90.49 Acquired absence of other specified parts of digestive tract; R53.1 Weakness
CPT/HCPCS: 33208; 36415; 71045; 71046; 80048; 80053; 80061; 81001; 82550; 82553; 83036; 83735; 84100; 84443; 84484; 85025; 85610; 85730; 87086; 92953; 93005; 93306; 96361; 96374; 99285

== ENCOUNTER 2019-04-21 20:45 | Emergency (ER) | payer MEDICARE, BC ==
[2019-04-21 20:59] VITALS: PULSE 68; TEMP 98.7
--- NOTE | 2019-04-21 22:03 | XR ---
EXAMINATION TYPE: XR ankle complete RT DATE OF EXAM: 04/21/2019 COMPARISON: NONE HISTORY: Pain TECHNIQUE: 3 views FINDINGS: There are moderate-sized plantar and Achilles calcaneal spurs. There is vascular calcificat ion. Ankle mortise is anatomic. I see no displaced fracture. IMPRESSION: Calcaneal spurring. Mild soft tissue swelling. No fracture seen.
--- NOTE | 2019-04-21 22:20 | ED ---
Fall HPI - General Chief Complaint: Fall Stated Complaint: fall at home in driveway Time Seen by Provider: 04/21/19 21:43 Source: patient Mode of arrival: ambulatory - History of Present Illness Initial Comments: Patient is a 84-year-old female presenting to the emergency Department with complaints of right ankle pain after falling today. Patient states she was on an uneven sidewalk at home and fell rolling her ankle. Patient denies hitting her head. Patient denies pain anywhere else. Patient denies any previous surgeries of her right ankle. Patient has no other complaints. Upon arrival vital signs are stable. - Related Data Home Medications Medication Instructions Recorded Confirmed glipiZIDE [Glucotrol] 10 mg PO DAILY 04/20/18 04/21/19 metFORMIN HCL [Glucophage] 500 mg PO DAILY 04/20/18 04/21/19 Previous Rx's Medication Instructions Recorded Apixaban [Eliquis] 2.5 mg PO BID #60 tablet 04/26/18 Furosemide [Lasix] 20 mg PO DAILY tab 04/26/18 Lisinopril [Zestril] 10 mg PO DAILY #30 tab 04/26/18 Ondansetron [Zofran] 4 mg PO Q6HR PRN tab 04/26/18 Promethazine HCl [Phenergan Syrup] 12.5 mg PO Q6H PRN cup 04/26/18 Allergies Allergy/AdvReac Type Severity Reaction Status Date / Time No Known Allergies Allergy Verified 04/20/18 13:52 Review of Systems ROS Statement: Those systems with pertinent positive or pertinent negative responses have been documented in the HPI. ROS Other: All systems not noted in ROS Statement are negative. Past Medical History Past Medical History: Diabetes Mellitus, Hypertension History of Any Multi-Drug Resistant Organisms: None Reported Past Surgical History: Appendectomy, Joint Replacement Additional Past Surgical History / Comment(s): lung surg as a child. hip replac Past Psychological History: No Psychological Hx Reported Smoking Status: Former smoker Past Alcohol Use History: None Reported Past Drug Use History: None Reported - Past Family History Mother Family Medical History: No Reported History Father History Unknown: Yes Brother(s) Additional Family Medical History / Comment(s): "had a bad heart, young" General Exam - General Exam Comments Initial Comments: GENERAL: Well-appearing, well-nourished and in no acute distress. HEAD: Atraumatic, normocephalic. EYES: Pupils equal round and reactive to light, extraocular movements intact, sclera anicteric, conjunctiva are normal. ENT: TMs normal, nares patent, oropharynx clear without exudates. Moist mucous membranes. NECK: Normal range of motion, supple without lymphadenopathy or JVD. LUNGS: Breath sounds clear to auscultation bilaterally and equal. No wheezes rales or rhonchi. HEART: Regular rate and rhythm without murmurs, rubs or gallops. ABDOMEN: Soft, nontender, normoactive bowel sounds. No guarding, no rebound. No masses appreciated. : Deferred EXTREMITIES: Mild swelling of the right ankle, pain with palpation around the ankle joint. Slightly decreased range of motion of the right ankle secondary to pain. No clubbing or cyanosis. NEUROLOGICAL: Cranial nerves II through XII grossly intact. Normal speech, normal gait. PSYCH: Normal mood, normal affect. SKIN: Warm, Dry, normal turgor, no rashes or lesions noted. Limitations: no limitations Course Vital Signs 04/21/19 04/21/19 20:55 22:37 Temperature 98.7 F 98.7 F Pulse Rate 68 68 Respiratory 20 18 Rate Blood Pressure 163/68 150/64 O2 Sat by Pulse 99 99 Oximetry Medical Decision Making - Medical Decision Making Patient is a 84-year-old female presenting with right ankle pain after falling in her driveway at home. Patient denies hitting her head and denies any other injuries at this time. Her only complaint is her right ankle. On exam, patient has mild swelling and pain with palpation around the ankle joint. X-rays reveal no acute fractures or dislocations. Was discussed with patient this is most likely an ankle sprain. Patient will use ice, compression, elevation for symptom control. Patient will follow up with primary care doctor if symptoms persist over 1 week. Patient is stable for discharge at this time. Return parameters were discussed with the patient she verbalized understanding. All questions are answered. Disposition Clinical Impression: Right ankle sprain, Fall Disposition: HOME SELF-CARE Condition: Stable Instructions (If sedation given, give patient instructions): Ankle Sprain (ED) Additional Instructions: Please return to the Emergency Department if symptoms worsen or any other concerns. Use ice, compression, elevation and rest. Follow-up with primary care physician as symptoms do not improve in one week. Is patient prescribed a controlled substance at d/c from ED?: No Referrals: Sergio Conley DO [Primary Care Provider] - 1-2 days
[2019-04-21 22:39] VITALS: BP 150/64; RESP 18
== END 2019-04-21 22:35 | disposition home or self-care (01) ==
LOC: SUPCPDRO 20:45 → EC 20:45
DX: S93.401A Sprain of unspecified ligament of right ankle, initial encounter (principal); E11.9 Type 2 diabetes mellitus without complications; Z96.649 Presence of unspecified artificial hip joint; Z87.891 Personal history of nicotine dependence; Z79.84 Long term (current) use of oral hypoglycemic drugs; W19.XXXA Unspecified fall, initial encounter; Y92.480 Sidewalk as the place of occurrence of the external cause; Y93.01 Activity, walking, marching and hiking
CPT/HCPCS: 99283

== ENCOUNTER 2019-06-09 20:24 | Emergency (ER) | payer MEDICARE, BC ==
[2019-06-09] MEDS ORDERED: SODIUM CHLORIDE 0.9% 1,000 ML IV STA (20:32)
--- NOTE | 2019-06-09 20:58 | ED ---
Arrhythmia/Palpitations HPI - General Chief Complaint: Arrhythmia/Palpitations Stated Complaint: Chest pain Time Seen by Provider: 06/09/19 20:31 Source: patient, RN notes reviewed, old records reviewed Mode of arrival: wheelchair Limitations: no limitations - History of Present Illness Initial Comments: This is a 84-year-old female the ER for evaluation presents today for evaluation regards to few episodes of chest pain midday chest pain as well as later in the day chest pain. Patient has history of arrhythmia and bradycardia with pacer placed. No history of heart disease. Patient currently is asymptomatic patient's Complaint. Patient called his daughter when she had recurrent chest pain tonight and daughter brings patient to ER. MD Complaint: rapid heart beat, palpitations (Chest pain) -: hour(s) Context: other (Occasional chest pain) Arrhythmia History: pacemaker Associated Symptoms: chest pain - Related Data Home Medications Medication Instructions Recorded Confirmed Apixaban [Eliquis] 5 mg PO BID 06/09/19 06/09/19 Docusate [Colace] 100 mg PO DAILY 06/09/19 06/09/19 Furosemide [Lasix] 20 mg PO Q48H 06/09/19 06/09/19 Previous Rx's Medication Instructions Recorded Lisinopril [Zestril] 10 mg PO DAILY #30 tab 04/26/18 Allergies Allergy/AdvReac Type Severity Reaction Status Date / Time No Known Allergies Allergy Verified 06/09/19 21:02 Review of Systems ROS Statement: Those systems with pertinent positive or pertinent negative responses have been documented in the HPI. ROS Other: All systems not noted in ROS Statement are negative. Past Medical History Past Medical History: Diabetes Mellitus, Hypertension History of Any Multi-Drug Resistant Organisms: None Reported Past Surgical History: Appendectomy, Joint Replacement, Orthopedic Surgery Additional Past Surgical History / Comment(s): lung surg as a child. hip replac Past Psychological History: No Psychological Hx Reported Smoking Status: Former smoker Past Alcohol Use History: None Reported Past Drug Use History: None Reported - Past Family History Mother Family Medical History: No Reported History Father History Unknown: Yes Brother(s) Additional Family Medical History / Comment(s): "had a bad heart, young" General Exam Limitations: no limitations General appearance: alert, in no apparent distress Head exam: Present: atraumatic, normocephalic, normal inspection Eye exam: Present: normal appearance, PERRL, EOMI. Absent: scleral icterus, conjunctival injection, periorbital swelling ENT exam: Present: normal exam, mucous membranes moist Neck exam: Present: normal inspection. Absent: tenderness, meningismus, lymphadenopathy Respiratory exam: Present: normal lung sounds bilaterally. Absent: respiratory distress, wheezes, rales, rhonchi, stridor Cardiovascular Exam: Present: regular rate, normal rhythm, normal heart sounds. Absent: systolic murmur, diastolic murmur, rubs, gallop, clicks GI/Abdominal exam: Present: soft, normal bowel sounds. Absent: distended, te nderness, guarding, rebound, rigid Extremities exam: Present: normal inspection, full ROM, normal capillary refill. Absent: tenderness, pedal edema, joint swelling, calf tenderness Back exam: Present: normal inspection Neurological exam: Present: alert, oriented X3, CN II-XII intact Psychiatric exam: Present: normal affect, normal mood Skin exam: Present: warm, dry, intact, normal color. Absent: rash Course Vital Signs 06/09/19 06/09/19 20:29 21:35 Temperature 97.9 F Pulse Rate 72 66 Respiratory 18 16 Rate Blood Pressure 134/58 143/75 O2 Sat by Pulse 98 99 Oximetry - Reevaluation(s) Reevaluation #1: 06/09/19 21:01 Medical records reviewed Reevaluation #2: 06/09/19 22:05 Medical records reviewed nonconclusive no history of elevated troponin Reevaluation #3: 06/09/19 22:06 Patient remains without chest pain Reevaluation #4: 06/09/19 22:06 Patient feels okay for discharge EKG Findings - EKG Comments: EKG Findings:: EKG shows sinus rhythm rate of 72, MI 270, QRS 126, QTc 418 Medical Decision Making - Medical Decision Making 84 female currently with chest pain. Patient presented with no chest pain currently no chest pain upon arrival to ER no chest pain throughout ER stay. Patient will be discharged home with negative troponin normal EKG shows have pacer. She'll PVCs. Patient without shortness of breath no return of chest pain returns - Lab Data Result diagrams: 06/09/19 20:56 06/09/19 20:56 Lab Results 06/09/19 06/09/19 06/09/19 Range/Units 20:56 20:56 20:56 WBC 5.5 (3.8-10.6) k/uL RBC 3.93 (3.80-5.40) m/uL Hgb 12.6 (11.4-16.0) gm/dL Hct 37.3 (34.0-46.0) % MCV 94.9 (80.0-100.0) fL MCH 32.0 (25.0-35.0) pg MCHC 33.7 (31.0-37.0) g/dL RDW 12.7 (11.5-15.5) % Plt Count 271 (150-450) k/uL Neutrophils % 70 % Lymphocytes % 20 % Monocytes % 5 % Eosinophils % 3 % Basophils % 1 % Neutrophils # 3.8 (1.3-7.7) k/uL Lymphocytes # 1.1 (1.0-4.8) k/uL Monocytes # 0.3 (0-1.0) k/uL Eosinophils # 0.2 (0-0.7) k/uL Basophils # 0.0 (0-0.2) k/uL PT (9.0-12.0) sec INR (<1.2) APTT (22.0-30.0) sec Sodium 141 (137-145) mmol/L Potassium 4.1 (3.5-5.1) mmol/L Chloride 108 H (98-107) mmol/L Carbon Dioxide 25 (22-30) mmol/L Anion Gap 8 mmol/L BUN 31 H (7-17) mg/dL Creatinine 1.06 H (0.52-1.04) mg/dL Est GFR (CKD-EPI)AfAm 55 (>60 ml/min/1.73 sqM) Est GFR (CKD-EPI)NonAf 48 (>60 ml/min/1.73 sqM) Glucose 169 H (74-99) mg/dL Plasma Lactic Acid Mingo 1.5 (0.7-2.0) mmol/L Calcium 9.4 (8.4-10.2) mg/dL Phosphorus 4.2 (2.5-4.5) mg/dL Magnesium 1.8 (1.6-2.3) mg/dL Total Bilirubin 0.2 (0.2-1.3) mg/dL AST 24 (14-36) U/L ALT 16 (9-52) U/L Alkaline Phosphatase 108 (38-126) U/L Creatine Kinase 45 (30-135) U/L Troponin I (0.000-0.034) ng/mL NT-Pro-B Natriuret Pep pg/mL Total Protein 6.6 (6.3-8.2) g/dL Albumin 3.7 (3.5-5.0) g/dL TSH 1.730 (0.465-4.680) mIU/L 06/09/19 06/09/19 06/09/19 Range/Units 20:56 20:56 20:56 WBC (3.8-10.6) k/uL RBC (3.80-5.40) m/uL Hgb (11.4-16.0) gm/dL Hct (34.0-46.0) % MCV (80.0-100.0) fL MCH (25.0-35.0) pg MCHC (31.0-37.0) g/dL RDW (11.5-15.5) % Plt Count (150-450) k/uL Neutrophils % % Lymphocytes % % Monocytes % % Eosinophils % % Basophils % % Neutrophils # (1.3-7.7) k/uL Lymphocytes # (1.0-4.8) k/uL Monocytes # (0-1.0) k/uL Eosinophils # (0-0.7) k/uL Basophils # (0-0.2) k/uL PT 10.7 (9.0-12.0) sec INR 1.0 (<1.2) APTT 25.0 (22.0-30.0) sec Sodium (137-145) mmol/L Potassium (3.5-5.1) mmol/L Chloride (98-107) mmol/L Carbon Dioxide (22-30) mmol/L Anion Gap mmol/L BUN (7-17) mg/dL Creatinine (0.52-1.04) mg/dL Est GFR (CKD-EPI)AfAm (>60 ml/min/1.73 sqM) Est GFR (CKD-EPI)NonAf (>60 ml/min/1.73 sqM) Glucose (74-99) mg/dL Plasma Lactic Acid Mingo (0.7-2.0) mmol/L Calcium (8.4-10.2) mg/dL Phosphorus (2.5-4.5) mg/dL Magnesium (1.6-2.3) mg/dL Total Bilirubin (0.2-1.3) mg/dL AST (14-36) U/L ALT (9-52) U/L Alkaline Phosphatase (38-126) U/L Creatine Kinase (30-135) U/L Troponin I <0.012 (0.000-0.034) ng/mL NT-Pro-B Natriuret Pep 2010 pg/mL Total Protein (6.3-8.2) g/dL Albumin (3.5-5.0) g/dL TSH (0.465-4.680) mIU/L - Radiology Data Radiology results: report reviewed (X-rays negative for acute disease), image reviewed Disposition Clinical Impression: Palpitations, Chest pain Disposition: HOME SELF-CARE Condition: Good Instructions (If sedation given, give patient instructions): Heart Palpitations (ED), Chest Pain (ED) Is patient prescribed a controlled substance at d/c from ED?: No Referrals: Sergio Conley DO [Primary Care Provider] - 1-2 days
[2019-06-09 21:14] LABS: Basophils % (A) 1 %; Eosinophils # (A) 0.2 k/uL (0-0.7); Eosinophils % (A) 3 %; HCT 37.3 % (34.0-46.0); HGB 12.6 gm/dL (11.4-16.0); Lymphocytes # (A) 1.1 k/uL (1.0-4.8); Lymphocytes % (A) 20 %; MCHC 33.7 g/dL (31.0-37.0); MCV 94.9 fL (80.0-100.0); Mean Platelet Volume 6.3; Monocytes # (A) 0.3 k/uL (0-1.0); Monocytes % (A) 5 %; Neutrophils # (A) 3.8 k/uL (1.3-7.7); Neutrophils % (A) 70 %; Platelet Count 271 k/uL (150-450); RBC 3.93 m/uL (3.80-5.40); RDW 12.7 % (11.5-15.5); WBC 5.5 k/uL (3.8-10.6)
--- NOTE | 2019-06-09 21:19 | XR ---
EXAMINATION TYPE: XR chest 2V DATE OF EXAM: 06/09/2019 COMPARISON: 04/24/2018 INDICATION: Intermittent palpitations 5 days TECHNIQUE: Frontal and lateral views of the chest are obtained. FINDINGS: The heart size is normal. The pulmonary vasculature is normal. Small posterior pleural effusion may be present. Suspicious infiltrate is not identified. Previous ri ght lower lobe infiltrate is resolving.. IMPRESSION: 1. Small residual right pleural effusion. 2. Resolving right lower lobe infiltrate
[2019-06-09 21:20] LABS: Prothrombin Time 10.7 sec (9.0-12.0)
[2019-06-09 21:21] LABS: Albumin 3.7 g/dL (3.5-5.0); Calcium 9.4 mg/dL (8.4-10.2); Magnesium 1.8 mg/dL (1.6-2.3); Phosphorus 4.2 mg/dL (2.5-4.5); Potassium 4.1 mmol/L (3.5-5.1); Total Bilirubin 0.2 mg/dL (0.2-1.3); Total Protein 6.6 g/dL (6.3-8.2)
[2019-06-09 23:13] VITALS: BP 143/68; PULSE 60; RESP 18; TEMP 98.1
== END 2019-06-09 23:11 | disposition home or self-care (01) ==
LOC: EC 20:24
DX: R07.9 Chest pain, unspecified (principal); I49.3 Ventricular premature depolarization; I10 Essential (primary) hypertension; Z79.01 Long term (current) use of anticoagulants; Z79.899 Other long term (current) drug therapy; Z96.649 Presence of unspecified artificial hip joint; Z87.891 Personal history of nicotine dependence; Z95.0 Presence of cardiac pacemaker
CPT/HCPCS: 36415; 71046; 80053; 82550; 83605; 83735; 83880; 84100; 84443; 84484; 85025; 85610; 85730; 93005; 96360; 99285

== ENCOUNTER 2019-08-29 05:38 | Emergency (ER) | payer MEDICARE, BC ==
[2019-08-29 05:46] VITALS: RESP 18
[2019-08-29 06:25] LABS: Basophils % (A) 1 %; Eosinophils # (A) 0.2 k/uL (0-0.7); Eosinophils % (A) 4 %; HCT 35.8 % (34.0-46.0); HGB 12.3 gm/dL (11.4-16.0); Lymphocytes # (A) 0.8 k/uL (1.0-4.8); Lymphocytes % (A) 13 %; MCHC 34.3 g/dL (31.0-37.0); MCV 93.3 fL (80.0-100.0); Mean Platelet Volume 7.8; Monocytes # (A) 0.3 k/uL (0-1.0); Monocytes % (A) 5 %; Neutrophils # (A) 4.8 k/uL (1.3-7.7); Neutrophils % (A) 76 %; Platelet Count 196 k/uL (150-450); RBC 3.84 m/uL (3.80-5.40); RDW 12.5 % (11.5-15.5); WBC 6.3 k/uL (3.8-10.6)
--- NOTE | 2019-08-29 06:25 | XR ---
EXAMINATION TYPE: XR chest 2V DATE OF EXAM: 08/29/2019 COMPARISON: 06/09/2019 HISTORY: Weakness TECHNIQUE: FINDINGS: There is coarse interstitial infiltrates in the mid and lower lung wiley. There is slight blunting right costophrenic angle. Heart is top normal in size. There is a left axillary pacemaker. T here are chest leads. IMPRESSION: There is some pulmonary interstitial edema with small right pleural effusion. This is inc reased compared to last exam and could be related to heart failure. Borderline cardiomegaly.
[2019-08-29 06:35] LABS: Albumin 3.6 g/dL (3.5-5.0); Calcium 9.2 mg/dL (8.4-10.2); Magnesium 1.8 mg/dL (1.6-2.3); Partial Thromboplastin Time 24.4 sec (22.0-30.0); Potassium 3.7 mmol/L (3.5-5.1); Prothrombin Time 10.4 sec (9.0-12.0); Total Bilirubin 0.9 mg/dL (0.2-1.3); Total Protein 6.6 g/dL (6.3-8.2)
--- NOTE | 2019-08-29 06:55 | ED ---
Chest Pain HPI - General Chief Complaint: Chest Pain Stated Complaint: Chest Pain Time Seen by Provider: 08/29/19 06:05 Source: patient, family, RN notes reviewed Mode of arrival: wheelchair Limitations: no limitations - History of Present Illness Initial Comments: 84-year-old female presents emergency Department with chief complaint of chest discomfort. Patient states pain started about 4:30 AM this morning. Patient states that she waited half an hour before telling family. She states that she has pain that radiated to her abdomen and back. Patient states the pain has completely dissipated she has no complaints of headache, dizziness, shortness breath, pleuritic chest pain, abdominal pain, nausea vomiting. Patient does admit that she had a stent placed 5 days ago at [facility]. 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 Patient currently had new medications started bleeding Plavix Lipitor metop rolol. She also takes Eliquis and Lasix. - Related Data Home Medications Medication Instructions Recorded Confirmed Apixaban [Eliquis] 5 mg PO BID 06/09/19 08/29/19 Docusate [Colace] 100 mg PO DAILY 06/09/19 08/29/19 Furosemide [Lasix] 20 mg PO Q48H 06/09/19 08/29/19 Aspirin EC [Ecotrin Low Dose] 81 mg PO DAILY 08/29/19 08/29/19 Atorvastatin [Lipitor] 80 mg PO HS 08/29/19 08/29/19 Clopidogrel [Plavix] 75 mg PO DAILY 08/29/19 08/29/19 Isosorbide Mononitrate ER [Imdur] 30 mg PO DAILY 08/29/19 08/29/19 Lisinopril [Zestril] 5 mg PO DAILY 08/29/19 08/29/19 Metoprolol Succinate [Toprol XL] 25 mg PO DAILY 08/29/19 08/29/19 Allergies Allergy/AdvReac Type Severity Reaction Status Date / Time No Known Allergies Allergy Verified 08/29/19 07:50 Review of Systems ROS Statement: Those systems with pertinent positive or pertinent negative responses have been documented in the HPI. ROS Other: All systems not noted in ROS Statement are negative. EKG Findings - EKG Comments: EKG Findings:: EKG performed at 5.53 sinus rhythm with first-degree AV block, rate of 66 NV 1:30 QRS 140 QT status QTC 424/444 Past Medical History Past Medical History: Diabetes Mellitus, Hypertension Additional Past Medical History / Comment(s): pacemaker, History of Any Multi-Drug Resistant Organisms: None Reported Past Surgical History: Appendectomy, Heart Catheterization With Stent, Joint Replacement, Orthopedic Surgery Additional Past Surgical History / Comment(s): lung surg as a child. hip replac Past Psychological History: No Psychological Hx Reported Smoking Status: Former smoker Past Alcohol Use History: None Reported Past Drug Use History: None Reported - Past Family History Mother Family Medical History: No Reported History Father History Unknown: Yes Brother(s) Additional Family Medical History / Comment(s): "had a bad heart, young" General Exam Limitations: no limitations General appearance: alert, in no apparent distress Head exam: Present: atraumatic, normocephalic, normal inspection Eye exam: Present: normal appearance, PERRL, EOMI. Absent: scleral icterus, conjunctival injection, periorbital swelling ENT exam: Present: normal exam, normal oropharynx, mucous membranes moist Neck exam: Present: normal inspection, full ROM. Absent: tenderness, meningismus, lymphadenopathy Respiratory exam: Present: normal lung sounds bilaterally. Absent: respiratory distress, wheezes, rales, rhonchi, stridor Cardiovascular Exam: Present: regular rate, normal rhythm, normal heart sounds. Absent: systolic murmur, diastolic murmur, rubs, gallop, clicks GI/Abdominal exam: Present: soft, normal bowel sounds. Absent: distended, tenderness, guarding, rebound, rigid Extremities exam: Present: other (Pulses equal in all extremities.) Skin exam: Present: warm, dry, intact, normal color. 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 Patient chest x-ray shows mild pleural effusion though she is in no respiratory distress pulse ox has been stable. Patient currently does take Lasix has not taken her dose for today. Case is with Dr. Aracelis Lowry, who reviewed the labs, EKG and x-ray and is very familiar with his patient and states that if she is asymptomatic at this time that she may be discharged with follow-up. He does feel that elevated troponin was from recent stent placement. There are no acute EKG changes. I did explain this patient and family in the room who agreed with this plan the advised to return for any changing symptoms. Disposition Clinical Impression: Chest pain, S/P coronary artery stent placement Disposition: HOME SELF-CARE Condition: Stable Instructions (If sedation given, give patient instructions): Chest Pain (ED) Additional Instructions: Please return to the Emergency Department if symptoms worsen or any other concerns. Is patient prescribed a controlled substance at d/c from ED?: No Referrals: Sergio Conley DO [Primary Care Provider] - 1-2 days Lizzie Lowry MD [STAFF PHYSICIAN] - 1-2 days Time of Disposition: 09:13
[2019-08-29 09:26] VITALS: BP 100/55; PULSE 79; TEMP 98
== END 2019-08-29 09:26 | disposition home or self-care (01) ==
LOC: EC 05:38
DX: R07.89 Other chest pain (principal); Z95.5 Presence of coronary angioplasty implant and graft; J90 Pleural effusion, not elsewhere classified; R79.89 Other specified abnormal findings of blood chemistry; I10 Essential (primary) hypertension; R10.9 Unspecified abdominal pain; M54.9 Dorsalgia, unspecified; Z87.891 Personal history of nicotine dependence; Z79.01 Long term (current) use of anticoagulants; Z79.02 Long term (current) use of antithrombotics/antiplatelets; Z79.82 Long term (current) use of aspirin; Z79.899 Other long term (current) drug therapy; Z95.0 Presence of cardiac pacemaker; Z90.49 Acquired absence of other specified parts of digestive tract; Z82.49 Family history of ischemic heart disease and other diseases of the circulatory system
CPT/HCPCS: 36415; 71046; 80053; 82553; 83690; 83735; 83880; 84484; 85025; 85610; 85730; 93005; 99285

== ENCOUNTER → 2019-10-25 | Outpatient (CLI) | payer MEDICARE, BC ==
[2019-10-25 13:32] LABS: HCT 36.5 % (34.0-46.0); HGB 11.7 gm/dL (11.4-16.0); MCH 30.5 pg (25.0-35.0); MCV 95.4 fL (80.0-100.0); Platelet Count 313 k/uL (150-450); RBC 3.82 m/uL (3.80-5.40); WBC 7.7 k/uL (3.8-10.6)
[2019-10-25 13:47] LABS: Potassium 3.6 mmol/L (3.5-5.1)
== END | disposition home or self-care (01) ==
LOC: LABWHC1 12:13
PROVIDERS: ATTEND Internal Medicine Interventional Cardiology
DX: Z01.818 Encounter for other preprocedural examination (principal); I20.0 Unstable angina
CPT/HCPCS: 36415; 80051; 82565; 84520; 85027

== ENCOUNTER 2019-10-29 05:54 | Day surgery (SDC) | payer MEDICARE, BC ==
[2019-10-25 15:53] VITALS: BMI 23.1
[2019-10-29] MEDS ORDERED: NITROGLYCERIN SL TABS 0.4 MG TAB SUBLINGUAL PRN (05:59)
[2019-10-29] MEDS ORDERED: ALPRAZolam 0.25 MG TAB PO PRN (05:59)
[2019-10-29] MEDS ORDERED: ASPIRIN 325 MG TAB PO STA (05:59)
[2019-10-29] MEDS ORDERED: ATORVASTATIN 80 MG TAB PO STA (05:59)
[2019-10-29] MEDS ORDERED: ALPRAZolam 0.5 MG TAB PO PRN (05:59)
[2019-10-29] MEDS ORDERED: SODIUM CHLORIDE 0.9% 1,000 ML in EMPTY BAG 1 BAG IV ONE (05:59)
[2019-10-29 06:35] VITALS: RESP 16; TEMP 99.1
[2019-10-29] MEDS ORDERED: LIDOCAINE 1% INJ 10MG/ML (20 ML MDV) ONE (07:34)
[2019-10-29] MEDS ORDERED: MIDAZOLAM 2 MG/2 ML VIAL IV ONE (07:40)
[2019-10-29] MEDS ORDERED: LIDOCAINE 1% INJ 10MG/ML (20 ML MDV) SQ ONE (07:42)
[2019-10-29] MEDS ORDERED: SODIUM CHLORIDE 0.45% 1,000 ML IV SCH (08:00)
[2019-10-29] MEDS ORDERED: IOPAMIDOL-370 100ML BTL INJ ONE (08:04)
--- NOTE | 2019-10-29 11:05 | CC ---
CARDIAC CATHETERIZATION REPORT DATE OF SERVICE: 10/29/2019. PROCEDURE: Coronary angiography. Performed by Dr. Ron Lowry. Moderate conscious sedation time was 28 minutes. CLINICAL INFORMATION: Mrs. Xiao Whitfield is an 84-year-old elderly lady with underlying paroxysmal/persistent atrial fibrillation with underlying permanent pacemaker for sick sinus syndrome. She has significant coronary artery disease and in August of this year I performed a cardiac cath which revealed a very tight left main stenosis of 95% and 80% dominant RCA, heavily calcified with a total occlusion of mid LAD, diffuse disease in the nondominant circumflex. On August 24, 2019, she underwent a PTCA and stenting of left main and RCA as well as the proximal circumflex. This was performed at [facility] with an Impella from the left iliac approach. However, because of increasing symptoms of angina. I am recommending coronary angiography after due discussion. Patient has diffuse disease in the distal vessels as well. Risks, benefits, options, rationale were explained. PROCEDURE NOTE: Under local anesthesia and strict aseptic precautions, a 6-Turkmen introducer was placed in the right femoral artery. The patient's iliac system and femoral system were heavily calcified. Using standard Dale catheters, I performed coronary angiography. I did not check any LV pressures and this was performed in August. Following the procedure, the sheath was taken out and manual compression used to secure hemostasis and she was sent to the room in stable condition. Findings were discussed with the patient. She was sent to the room in stable condition. A FemoStop will be applied for 4 hours at 40 mmHg. CORONARY ANGIOGRAPHY FINDINGS: RIGHT CORONARY ARTERY: Technically a very dominant vessel that had 80% long mid lesion. This area that has been stented is widely patent at junction of mid and distal 1/3, there is about a 40% narrowing after which the vessel bifurcates into PDA and PLV. The PDA PLV is a large caliber system that has mild diffuse disease throughout with multiple areas of 30% to 40$ percent narrowing. PDA is a relatively small vessel. There may be some distal subtotal occlusion of the PDA. The entire RCA system is heavily calcified. RCA provides collaterals to the LAD and opacifies almost the entire length of LAD, best seen in the BRITO projection. LEFT MAIN CORONARY: This vessel was stented in [facility] on August 24. The vessel is widely patent with good flow. Bifurcates into LAD and circumflex. LEFT ANTERIOR DESCENDING CORONARY ARTERY: This vessel is totally occluded in the midportion after septal and diagonal branch. The rest of the LAD is actually filled from the RCA. The LAD in the proximal portion was dilated and that area is patent. Mid section is; however, totally occluded. Left posterior circumflex coronary artery. This vessel is diffusely diseased. The proximal portion of the circumflex as it comes off from the left main was stented. The stented area is patent. The first obtuse marginal is also patent, but then the continuation of circumflex has diffuse disease with a subtotal occlusion. The caliber of the vessel appears to be quite small beyond the stented segment. The first obtuse marginal is widely patent with brisk flow and proximal circumflex that was stented is widely patent. Left ventriculogram was not performed. FINAL IMPRESSION: This patient has a RCA that is widely patent with good flow. It opacifies the LAD. The PDA branch of the RCA appears to be totally occluded without much antegrade flow. PLV has diffuse disease but it opacifies the distal aspect of the LAD and almost up to the total occlusion. the LAD can be seen with flow that seems to be fairly brisk. The LAD therefore is being collateralized from the RCA which has no significant disease of the stented segment. The left system specifically the left main, is widely patent. Proximal circumflex that was stented is patent. Distal circumflex has diffuse disease before bifurcation into a groove branch and a second OM. First OM is widely patent. LAD is totally occluded in the midportion after septal and diagonal branch. RECOMMENDATIONS: This patient has diffuse breast had disease in the distal branches. The stented left main, mid RCA and proximal circumflex are widely patent. She may have angina because of diffuse disease in the branches and also inadequate collateralization of the LAD when patient does physical activity. I explained this to the patient and family. I am not recommending intervention. I will recommend that we add Ranexa 500 mg b.i.d. to her regimen and see how she does. She will be watched closely and will be discharged later on today. She received about 80 mL of contrast also and she will be hydrated and discharged and I will see her in the office within 1 week. Same medications will be resumed. MMODL / IJN: [id number] /
[2019-10-29 11:19] VITALS: BP 105/56
[2019-10-29 14:29] VITALS: PULSE 54
== END 2019-10-29 14:28 | disposition home or self-care (01) ==
LOC: CATHCVL 05:54
PROVIDERS: ATTEND Internal Medicine Interventional Cardiology
DX: I25.110 Atherosclerotic heart disease of native coronary artery with unstable angina pectoris (principal); I25.84 Coronary atherosclerosis due to calcified coronary lesion; I25.82 Chronic total occlusion of coronary artery; I10 Essential (primary) hypertension; I49.5 Sick sinus syndrome; E78.5 Hyperlipidemia, unspecified; I48.19 Other persistent atrial fibrillation; E11.9 Type 2 diabetes mellitus without complications; Z87.891 Personal history of nicotine dependence; Z95.5 Presence of coronary angioplasty implant and graft; Z86.711 Personal history of pulmonary embolism; Z95.0 Presence of cardiac pacemaker; Z82.49 Family history of ischemic heart disease and other diseases of the circulatory system; Z79.01 Long term (current) use of anticoagulants; Z79.02 Long term (current) use of antithrombotics/antiplatelets; Z79.899 Other long term (current) drug therapy
CPT/HCPCS: 93454; C1769 ×4; C1894; J2250; J2001; Q9967